=== PATIENT | female | born 1970 | race Caucasian/White ===

== ENCOUNTER 2021-09-16 11:32 | Outpatient (REF) | payer MEDICAID, SELFPAY ==
--- NOTE | ~2021-09-16 | XR_ITS ---
EXAMINATION: XR LUMBOSACRAL SPINE CLINICAL INFORMATION: Low back pain COMPARISON: None TECHNIQUE: Three views of the lumbosacral spine. FINDINGS: There is normal lumbar segmentation with 5 nonrib-bearing lumbar vertebrae of normal height and normal lumbar lordosis. There is no lumbar vertebral lesion, spondylolisthesis, destructive process. There is mild disc narrowing L2-L3 and L3-L4. Multilevel vertebral body spurring is present. No erosive change. There is facet degeneration L4-S1. The SI joints and visualized sacrum are unremarkable. There are surgical clips right upper abdomen likely from prior cholecystectomy. There are degenerative changes lower thoracic spine with disc narrowing and vertebral spurring and bridging osteophytes anteriorly and right laterally. XR/XR lumbar spine 2-3V IMPRESSION: 1. Mild multilevel vertebral spurring with mild disc narrowing L2-L3 and L3-L4 and facet degeneration lower lumbar spine. 2. No lumbar vertebral compression, spondylolisthesis, destructive process.
== END 2021-09-16 11:33 | disposition home or self-care (01) ==
LOC: HO.XRAY 11:32
PROVIDERS: PCP Internal Medicine; Visit Provider Internal Medicine
DX: M54.50 Low back pain, unspecified (principal)
CPT/HCPCS: 72100

== ENCOUNTER 2022-06-08 15:32 | Outpatient (REF) | payer MEDICAID, SELFPAY ==
--- NOTE | ~2022-06-08 | US_ITS ---
EXAMINATION: US SOFT TISSUE NECK CLINICAL INFORMATION: Localized swelling, mass and lump COMPARISON: None TECHNIQUE: Ultrasound of the neck soft tissues was performed with high- frequency frazier-scale imaging and color Doppler in the region of concern, right lateral neck, with the contralateral side for comparison. FINDINGS: No abnormality appreciated by ultrasound. No adenopathy, soft tissue mass or fluid collection. US/US soft tiss head and/or neck IMPRESSION: No abnormality appreciated by ultrasound in the right neck.
== END 2022-06-08 15:33 | disposition home or self-care (01) ==
LOC: HO.US 15:32
PROVIDERS: Visit Provider Internal Medicine
DX: R22.1 Localized swelling, mass and lump, neck (principal)
CPT/HCPCS: 76536

== ENCOUNTER 2023-04-30 08:32 | Outpatient (REF) | payer OTHER, SELFPAY ==
[2023-04-30 11:27] LABS: MANUAL DIFF FLAG NO
[2023-04-30 11:33] LABS: Basophils Absolute Auto 0.1 X10*3/uL (0.0-0.2); Basophils Percent Auto 0.9 % (0-2); Eosinophils Absolute Auto 0.4 X10*3/uL (0.0-0.4); Eosinophils Percent Auto 4.6 % (0-4); Hematocrit 43.4 % (37.0-47.0); Hemoglobin 14.6 g/dl (12.0-16.0); Imm Gran Abs Auto 0.02 X10*3/uL (0.00-0.03); Imm Gran Pct Auto 0.3 % (0.0-0.4); Lymphocytes Absolute Auto 2.5 X10*3/uL (1.2-4.9); Mean Corpuscular HGB Conc 33.6 g/dl (31.0-35.0); Mean Corpuscular Hemoglobin 31.3 pg (27.0-33.0); Mean Corpuscular Volume 93.1 fL (80.0-98.0); Mean Platelet Volume 11.3 fL (9.4-12.3); Monocytes Absolute Auto 0.4 X10*3/uL (0.1-1.2); Monocytes Percent Auto 5.1 % (2-11); Neutrophils Absolute Auto 4.7 x10*3/uL (2.0-8.3); Neutrophils Percent Auto 58.1 % (45-73); Platelet Count 210 X10*3/uL (160-400); Red Blood Count 4.66 X10*6/uL (4.20-5.50); Red Cell Distribution Width 13.1 % (11.0-16.0)
[2023-04-30 11:54] LABS: Estimated Average Glucose 117 mg/dL; Hemoglobin A1c % 5.7 % (<6.0)
[2023-04-30 12:12] LABS: Creatinine Urine 81.33 mg/dL; Microalbum/Creatinine Ratio Ur 9.8 ug/mg cr (<30)
[2023-04-30 12:23] LABS: Alanine Aminotransferase 20 U/L (0-31); Albumin Level 4.1 g/dL (3.5-5.0); Alkaline Phosphatase 102 U/L (39-117); Anion Gap 11 (12-20); Aspartate Amino Transferase 14 U/L (5-31); Bilirubin Total 0.5 mg/dL (0.0-1.0); Blood Urea Nitrogen 14 mg/dL (9-16); Calcium 9.3 mg/dL (8.4-10.2); Carbon Dioxide 26 mmol/L (22-29); Chloride 109 mmol/L (96-108); Cholesterol 223 mg/dL (<200); Estimated Glomerular Filt Rate > 60; Glucose Random 102 mg/dL (60-115); HDL Cholesterol 53 mg/dL (>40); LDL Cholesterol Calculated 149 mg/dL (<100); Potassium 4.3 mmol/L (3.3-5.1); Sodium 142 mmol/L (135-145); TSH reflex Free T4 1.91 uIU/mL (0.32-4.0); Total Protein 6.9 g/dL (6.5-8.0); Triglycerides 108 mg/dL (<150)
[2023-04-30 12:29] LABS: Syphilis Screen Nonreactive (Nonreactive)
[2023-04-30 12:30] LABS: HBc Num1 0.06 S/CO (0.00-0.79); HBsAGNum1 0.41 S/CO (0.00-0.99); HIV AB/AG Nonreactive (Nonreactive); HIV Num 1 0.05 S/CO (0.00-0.99); Hepatitis B Core Antibody Nonreactive (Nonreactive); Hepatitis B Surface Antigen Negative (Negative); ~HepC Num1 0.05 S/CO (0.00-0.79); ~Hepatitis B Surface Antibody NONREACTIVE (Nonreactive); ~Hepatitis C Antibody Nonreactive (Nonreactive)
[2023-04-30 12:40] LABS: Folate 12.9 ng/mL (> or = 4.0); Vitamin B12 466 pg/mL (200-900)
[2023-04-30 13:45] LABS: CT PCR NOT DETECTED (Not Detect.); NG PCR NOT DETECTED (Not Detect.)
[2023-05-05 01:49] LABS: VITAMIN D (1,25 OH) D3 62 pg/mL; Vit D (1,25-Dihydroxy) Total 62 pg/mL (18-72); Vitamin D (1,25 OH) D2 <8 pg/mL
== END 2023-04-30 08:33 | disposition home or self-care (01) ==
LOC: HO.HHCL 08:32
PROVIDERS: Visit Provider Student in an Organized Health Care Education/Training Program
DX: Z00.00 Encounter for general adult medical examination without abnormal findings (principal); Z20.2 Contact with and (suspected) exposure to infections with a predominantly sexual mode of transmission
CPT/HCPCS: 0353U; 80053; 80061; 82043; 82570; 82607; 82652; 82746; 83036; 84443; 85025; 86704; 86706; 86780; 86803; 87340; 87389

== ENCOUNTER 2024-01-25 08:09 | Outpatient (REF) | payer MEDICAID, SELFPAY ==
[2024-01-25 12:42] LABS: Alanine Aminotransferase 22 U/L (0-31); Alkaline Phosphatase 100 U/L (39-117); Anion Gap 9 (12-20); Aspartate Amino Transferase 17 U/L (5-31); Bilirubin Total 0.6 mg/dL (0.0-1.0); Blood Urea Nitrogen 21 mg/dL (9-16); Calcium 9.1 mg/dL (8.4-10.2); Carbon Dioxide 27 mmol/L (22-29); Chloride 110 mmol/L (96-108); Cholesterol 163 mg/dL (<200); Estimated Glomerular Filt Rate > 60; Glucose Random 118 mg/dL (60-115); HDL Cholesterol 54 mg/dL (>40); LDL Cholesterol Calculated 91 mg/dL (<100); Sodium 142 mmol/L (135-145); Total Protein 6.7 g/dL (6.5-8.0); Triglycerides 94 mg/dL (<150)
[2024-01-25 12:44] LABS: Estimated Average Glucose 117 mg/dL; Hemoglobin A1c % 5.7 % (<6.0)
== END 2024-01-25 08:10 | disposition home or self-care (01) ==
LOC: HO.HHCL 08:09
PROVIDERS: Visit Provider Student in an Organized Health Care Education/Training Program
DX: E78.00 Pure hypercholesterolemia, unspecified (principal); Z13.1 Encounter for screening for diabetes mellitus
CPT/HCPCS: 36415; 80053; 80061; 83036

== ENCOUNTER 2024-02-14 13:16 | Outpatient (REF) | payer MEDICAID, SELFPAY ==
--- NOTE | ~2024-02-14 | US_ITS ---
EXAMINATION: US SOFT TISSUE OF THE NECK CLINICAL INFORMATION: Dysphagia for solids and liquids. Rule out masses in neck. Per oscillograph technician patient states does not have a lump, rather states she feels a ball travel down her esophagus and anytime she swallows, also states itching in her ears and down her neck COMPARISON: Ultrasound soft tissue head and/or neck 06/08/2022. TECHNIQUE: Linear transducer grayscale and color Doppler examination of the proximal, mid and distal neck, midline. FINDINGS: Targeted ultrasound images were obtained by the oscillograph technician of the area of concern as indicated by the patient in the midline distal neck and demonstrated no discrete mass or fluid collection. Radiologist was not in attendance. Images were later provided for interpretation. US/US soft tiss head and/or neck IMPRESSION: No discrete mass or fluid collection identified in the area of concern as indicated by the patient in the midline distal neck. Correlation with clinical exam and possible ENT consultation recommended to determine further management as not all abnormalities are detected on ultrasound studies.
== END 2024-02-14 13:17 | disposition home or self-care (01) ==
LOC: HO.US 13:16
PROVIDERS: PCP Student in an Organized Health Care Education/Training Program; Visit Provider Student in an Organized Health Care Education/Training Program
DX: R13.10 Dysphagia, unspecified (principal)
CPT/HCPCS: 76536

== ENCOUNTER → 2024-05-23 13:57 | Outpatient (REF) | payer MEDICAID, SELFPAY ==
--- NOTE | 2024-05-23 14:01 | CA_ITS ---
Transthoracic Echocardiogram Patient (Last, First, Middle): Cheyenne Kinney, Gender: Female Date of : 1970 Age: 53 Procedure Date: 05/23/2024 Procedure Type: Transthoracic Echocardiogram Location: OP Height: 160.02 cm Weight: 77.11 kg BSA: 1.80 m2 Heart Rate: bpm BP: 130 / 80 mmHg Assistant Community Director: Referring MD: Cheyenne Wray MD Symptoms: DORANTES R06.09 Study Quality: Adequate w contrast ECG Rhythm: Sinus Conclusions: - The left ventricular systolic function is hyperdynamic. The visually estimated ejection fraction is >70%. - No obvious valvular pathology seen on this study. Findings Procedure Information Contrast agent, definity, is being given per protocol without apparent complications. Left Ventricle Normal left ventricular cavity size. There is normal left ventricular wall thickness. The left ventricular systolic function is hyperdynamic. The visually estimated ejection fraction is >70%. There is no evidence of regional wall motion abnormalities. Diastolic function is normal for age. Right Ventricle Normal right ventricular cavity size and systolic function. Atria Both atria are normal in size. Aortic Valve There is a normal trileaflet aortic valve. There is no aortic valve stenosis. There is no aortic valve regurgitation. Mitral Valve The mitral valve appears normal. There is no mitral valve regurgitation. There is no mitral valve stenosis. Pulmonic Valve The pulmonic valve is likely normal. Tricuspid Valve There is no tricuspid valve regurgitation. Tricuspid regurgitation envelope is inadequate for calculation of right ventricular systolic pressure. Great Vessels The asc aorta is normal in size. Venous The inferior vena cava is normal in size and collapses greater than 50% with inspiration. Pericardium/Pleural There is no evidence of pericardial effusion. Prior Study Comparison No prior study available for comparison. Recommendations, Care & Conclusions No obvious valvular pathology seen on this study. Measurements 2D Linear Measurements IVSd: 0.95 0.6-0.9/0.6-1.0 cm LVIDd: 4.85 3.9-5.3/4.2-5.9 cm LVIDd Index: 2.69 2.4-3.2/2.2-3.1 cm/m2 LVIDs: 2.34 2.0-3.6 cm LVPWd: 1.05 0.7-1.1 cm Ao Root: 2.80 2.1-3.5 cm LA Diam: 3.90 2.7-3.8/3.0-4.0 cm LAIDs Index: 2.17 1.5-2.3 cm/m2 LV Mass: 215.48 67-162/88-224 g LV Mass Index: 119.71 43-95/49-115 g/m2 LVOT Diam: 2.00 3.0+(-)1.3 cm 2D Systolic Function EF 4C: 66.00 >55% EF 2C: 77.30 >55% EF BiP: 72.10 >55% Mitral Valve MV Pk E: 0.64 MV PK A: 0.67 MV Decel Time: 222.00 E/A: 0.90 E'Lateral: 8.27 E'Medial: 8.05 E/E' Med: 7.90 E/E' Lat: 7.70 PHT: 65.00 MVA PHT: 3.38 Decel [place]: 2.87 Aortic Valve AoV Pk Ovi: 1.92 AoV Mn Ovi: 1.28 AoV VTI: 0.38 AoV Pk Grad: 15.00 Aov Mn Grad: 8.00 MIKAELA Cont.VTI: 2.19 LVOT LVOT Pk Ovi: 1.31 LVOT Mn Ovi: 0.76 LVOT VTI: 0.27 LVOT Pk Grad: 7.00 LVOT Mn Grad: 3.00 LVOT Diam: 2.00 LVOT Area: 3.14 Diastolic Function MV Pk E: 0.64 MV Pk A: 0.67 E/A: 0.90 E'Medial: 8.05 E/E' Med: 7.90 E' Laterial: 8.27 E/E' Lat: 7.70 Right Ventricle TAPSE (mm): 35.20 TVS' Ovi: 17.50 Tricuspid Valve TR Pk Ovi: 1.93 TR Pk Grad: 15.00 Great Vessels Aorta Ao Root-2D: 2.80 2.0-3.7 cm Ao Asc: 3.10 2.1-3.4 cm Pulmonary Valve PV Pk Ovi: 1.34 Peak PV Grad: 7.00 Updated in Other Vendor System with Status of Final Elder Fried MD electronically signed on 05/23/2024 4:32:58 PM with status of Final
== END ==
LOC: HO.CARD 13:57
PROVIDERS: PCP Student in an Organized Health Care Education/Training Program; Visit Provider Student in an Organized Health Care Education/Training Program
DX: R06.09 Other forms of dyspnea (principal)
CPT/HCPCS: 93306; Q9957

== ENCOUNTER → 2024-05-23 14:01 | Outpatient (BNV) | payer MEDICAID, SELFPAY | PROVIDERS: PCP Student in an Organized Health Care Education/Training Program; Visit Provider Internal Medicine | DX: R06.09 Other forms of dyspnea (principal) | CPT/HCPCS: 93306 ==

== ENCOUNTER 2024-07-17 08:26 | Outpatient (REF) | payer MEDICAID, SELFPAY ==
[2024-07-17 11:48] LABS: Mean Corpuscular HGB Conc 33.3 g/dl (31.0-35.0); Mean Corpuscular Hemoglobin 30.8 pg (27.0-33.0); Mean Corpuscular Volume 92.3 fL (80.0-98.0); Mean Platelet Volume 11.1 fL (9.4-12.3); Platelet Count 205 X10*3/uL (160-400); Red Blood Count 4.55 X10*6/uL (4.20-5.50); Red Cell Distribution Width 13.2 % (11.0-16.0); White Blood Count 7.2 X10*3/uL (4.8-10.8)
[2024-07-17 12:00] LABS: Estimated Average Glucose 120 mg/dL; Hemoglobin A1C 138.2791 umol/L; Hemoglobin A1c % 5.8 % (<6.0); Total Hemoglobin (HGBA1C) 3493.3543 umol/L
[2024-07-17 12:29] LABS: Syphilis Screen Nonreactive (Nonreactive)
[2024-07-17 12:35] LABS: HBc Num1 0.04 S/CO (0.00-0.79); HBsAGNum1 0.42 S/CO (0.00-0.99); HIV AB/AG Nonreactive (Nonreactive); HIV Num 1 0.05 S/CO (0.00-0.99); Hepatitis B Core Antibody Nonreactive (Nonreactive); Hepatitis B Surface Antigen Negative (Negative); ~HepC Num1 0.09 S/CO (0.00-0.79); ~Hepatitis B Surface Antibody NONREACTIVE (Nonreactive); ~Hepatitis C Antibody Nonreactive (Nonreactive)
[2024-07-17 12:38] LABS: Alanine Aminotransferase 22 U/L (0-31); Albumin Level 3.9 g/dL (3.5-5.0); Alkaline Phosphatase 97 U/L (39-117); Anion Gap 8 (12-20); Aspartate Amino Transferase 19 U/L (5-31); Bilirubin Total 0.7 mg/dL (0.0-1.0); Blood Urea Nitrogen 18 mg/dL (9-16); Calcium 8.7 mg/dL (8.4-10.2); Carbon Dioxide 28 mmol/L (22-29); Chloride 110 mmol/L (96-108); Cholesterol 187 mg/dL (<200); Estimated Glomerular Filt Rate > 60; Glucose Random 109 mg/dL (60-115); HDL Cholesterol 55 mg/dL (>40); LDL Cholesterol Calculated 109 mg/dL (<100); Sodium 142 mmol/L (135-145); Total Protein 6.6 g/dL (6.5-8.0); Triglycerides 119 mg/dL (<150)
[2024-07-17 12:40] LABS: Folate 7.3 ng/mL (> or = 4.0); TSH reflex Free T4 1.87 uIU/mL (0.32-4.0); Vitamin B12 490 pg/mL (200-900); Vitamin D 25-OH Total 35.2 ng/mL (>30)
[2024-07-17 13:33] LABS: CT PCR NOT DETECTED (Not Detect.); NG PCR NOT DETECTED (Not Detect.)
[2024-07-17 14:35] LABS: Creatinine Urine 145.37 mg/dL
== END 2024-07-17 08:27 | disposition home or self-care (01) ==
LOC: HO.HHCL 08:26
PROVIDERS: Visit Provider Student in an Organized Health Care Education/Training Program
DX: Z00.00 Encounter for general adult medical examination without abnormal findings (principal)
CPT/HCPCS: 80053; 80061; 82043; 82306; 82570; 82607; 82746; 83036; 84443; 85027; 86704; 86706; 86780; 86803; 87340; 87389; 87491; 87591

== ENCOUNTER 2024-07-17 08:58 | Outpatient (REF) | payer MEDICAID, SELFPAY | END 2024-07-17 08:59 | disposition home or self-care (01) | LOC: HO.HHCL 08:58 | PROVIDERS: Visit Provider Student in an Organized Health Care Education/Training Program | DX: Z13.89 Encounter for screening for other disorder (principal) ==

== ENCOUNTER 2024-08-11 09:22 | Outpatient (AMB) | payer MEDICAID, SELFPAY ==
--- NOTE | 2024-08-11 07:41 | A.OFFVIS_ITS ---
Intake Visit Reasons: LDCT HPI HPI LDCT: Details: Initial visit for this 53yo smoker with a 30+PYH. Patient started smoking at age 10 for 43 years at 1/2-1ppd. . Denies marijuana use. Denies second hand smoke exposure. Denies exposure to chemicals or substances like asbestos. . Denies known family history of lung cancer. Denies personal history of cancers. Denies chest CT in last year. . Denies recent travel outside the [place]. Denies recent respiratory illness or recent hospitalization for respiratory issues. Denies testing positive for COVID. Admits receiving COVID Vaccine. . Denies fever, chills, new/worsening cough, hemoptysis, hoarseness or dysphagia. Denies significant chest pain, significant dyspnea or unintentional weight loss. Patient Lung Cancer Screening Questionnaire reviewed with patient by provider. . Shared Decision Making Completed. Patient meets criteria. Discussed in detail with patient, the risk vs benefit of LDCT screening. Patient consents to proceed with scan. Discussed smoking cessation. [facility] Medical History (Updated 01/07/24 @ 11:29 by Lori Guthrie PA-C) Polymyalgia rheumatica Hypertension Hyperlipidemia Anxiety and depression Urinary incontinence Nicotine dependence, cigarettes, uncomplicated Surgical History (Updated 01/07/24 @ 11:30 by Lori Guthrie PA-C) History of cholecystectomy History of abdominal hysterectomy History of Social History (Updated 08/11/24 @ 09:41 by Lori Guthrie PA-C) Patient Tobacco Use Status: Current everyday Tobacco user Cigarettes Per Day: 10 Years Smoked: (onset 10yo, 1/2-1ppd x 43yrs, 30+PYH) Assessment & Plan Assessment & Plan (1) Nicotine dependence, cigarettes, uncomplicated: Comment: (onset 10yo, 1/2-1ppd x 43yrs, 30+PYH) Code(s): F17.210 - Nicotine dependence, cigarettes, uncomplicated Category: Medical Plan: - SDM visit completed today in office. - Patient meets criteria for LDCT for lung cancer screening purposes and is asymptomatic. - Smoking cessation counseling offered. Patients can always call [phone]. - Will arrange for a LDCT scan of the chest for screening purposes at [facility]. - Risks, benefits, and alternatives were discussed in detail and the patient agrees to proceed. - Risks discussed include but are not limited to: radiation exposure, anxiety during testing and while awaiting results, false negatives, false positives and possibility of additional intervention such as further imaging or surgical procedures for benign disease. - Benefits are obviously detection of lung cancer at an early stage which can lead to improved outcomes. - Discussed the importance of screening program compliance with adherence to yearly LDCT scan as scheduled - or sooner interval scans for personalized screening regimen. - Discussed follow up plan. Our office will send a letter discussing results and if needed set up phone call and office visit based on CT findings. - Patient educated on results categorization and the management decisions for suspicious findings potentially found on the screening LDCT scan. Any patient with a Lung RADS score of 3 or 4 will be reviewed by a multidisciplinary team at [facility] to form a plan of action in regards to scan findings. - If further work up is warranted for a suspicious lung finding this will be followed by the Lung Cancer Screening program in conjunction with the Thoracic Surgery Department at [facility]. - A copy of the office note and LDCT will be sent to the patient's PCP - as well as documentation on any associated further plans of care. - Incidental findings on LDCT are the PCP's responsibility. These findings are indicated with an S finding on the LDCT Assessment. A note discussing the findings will be sent to the PCP who is then responsible for further management. - All questions answered.? Coding Level of Care Code Lung Cancer Screening G0296 Diagnoses Nicotine dependence, cigarettes, uncomplicated F17.210
== END 2024-08-11 09:45 | disposition home or self-care (01) ==
PROVIDERS: PCP Student in an Organized Health Care Education/Training Program; Visit Provider Physician Assistant Medical
DX: F17.210 Nicotine dependence, cigarettes, uncomplicated (principal)
CPT/HCPCS: G0296

== ENCOUNTER 2024-08-11 09:41 | Outpatient (REF) | payer MEDICAID, SELFPAY ==
--- NOTE | ~2024-08-11 | CT_ITS ---
EXAMINATION: CT LUNG SCREENING HISTORY: Smoking history TECHNIQUE: Low dose axial images were obtained from the sternal notch to upper abdomen without IV contrast per standard departmental protocol. Sagittal and coronal reformatted images were also obtained and reviewed. One or more of the following techniques was used for dose reduction: Automated exposure control, adjustment of the mA and/or kV according to patient size, use of iterative reconstruction technique. DLP: 56 mGy-cm COMPARISON: There are no prior studies for comparison. FINDINGS: Lung nodules: There is a 3 mm calcification in the right lower lobe (image 28). No additional pulmonary nodules are identified. Emphysema: none Coronary Calcification: mild Aortic Arch Calcification: mild Potentially Significant Incidentals : none Additional Chest Findings: There is no pleural or pericardial effusion. No mediastinal or axillary lymphadenopathy is identified. Visualized upper abdomen: The visualized portions of the liver, spleen, and adrenals have an unremarkable unenhanced appearance. CT/CT lung screening IMPRESSION: No suspicious pulmonary nodules are identified. LUNG-RADS ASSESSMENT: Lung-RAD 2: Benign MANAGEMENT: Continue annual screening with LDCT in 12 months Category S: N/A Electronically signed by: Mauricio Garibay MD 08/14/2024 07:28 AM [facility]
== END 2024-08-11 09:42 | disposition home or self-care (01) ==
LOC: HO.CT 09:41
PROVIDERS: PCP Student in an Organized Health Care Education/Training Program; Visit Provider Physician Assistant Medical
DX: Z12.2 Encounter for screening for malignant neoplasm of respiratory organs (principal); F17.210 Nicotine dependence, cigarettes, uncomplicated
CPT/HCPCS: 71271; G0296

== ENCOUNTER → 2024-08-11 09:45 | Outpatient (BNV) | payer MEDICAID, SELFPAY | PROVIDERS: PCP Student in an Organized Health Care Education/Training Program; Visit Provider Radiology Diagnostic Radiology | DX: J84.10 Pulmonary fibrosis, unspecified (principal) | CPT/HCPCS: 71271 ==

== ENCOUNTER 2024-09-07 13:43 | Outpatient (AMB) | payer MEDICAID, SELFPAY ==
--- NOTE | 2024-09-07 13:57 | A.OFFVIS_ITS ---
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 She is a 53-year-old female who is a longstanding smoker, with hypertension hyperlipidemia. Over the last few months she has been noticing increasing symptoms exertional shortness of breath especially when she climbs few flights of stair quickly. She was no associated chest discomfort with her. However she says when she is stressed she gets retrosternal chest pressure/tightness but usually at that time a blood pressure is also very elevated. She was overall otherwise a blood pressure is well controlled. She smokes about 10-12 cigarettes a day on a regular basis and when she was stress she smokes more cigarettes. She has not had any pulmonary workup. She had LV ejection fraction greater than 70% without any major valvular abnormalities or significant LVH. She was referred here for further evaluation. [facility] Medical History Polymyalgia rheumatica Hypertension Hyperlipidemia Anxiety and depression Urinary incontinence Nicotine dependence, cigarettes, uncomplicated Surgical History History of cholecystectomy History of abdominal hysterectomy History of Family History Father No problems noted. Mother No problems noted. Social History Patient Tobacco Use Status: Current everyday Tobacco user Cigarettes Per Day: 10 Years Smoked: (onset 10yo, 1/2-1ppd x 43yrs, 30+PYH) Review of Systems Const Denies chills, Denies daytime sleepiness, Denies fatigue, Denies fever(s), Denies frequent falls, Denies poor appetite, Denies snoring, Denies stops breathing during sleep, Denies weakness, Denies weight gain and Denies weight loss Eyes Denies loss of vision ENT Denies dizziness and Denies hearing loss Card Denies chest pain, Denies claudication, Denies leg edema, Denies lightheadedness, Denies palpitations, Denies dyspnea, Denies dyspnea on exertion and Denies orthopnea Resp Denies cough, Denies excessive phlegm production, Denies dyspnea, Denies dyspnea on exertion, Denies snoring and Denies wheezing GI Denies abdominal pain, Denies hematochezia, Denies change in bowel habits, Denies nausea and Denies vomiting Denies urinary frequency and Denies dysuria Musc Denies arthralgias, Denies muscle weakness, Denies numbness and Denies other (frequent falls) Skin/Breast Denies nail changes and Denies rash Neuro Denies Abnormal speech present, Denies dizziness, Denies frequent falls, Denies loss of vision, Denies memory loss, Denies numbness and Denies weakness Psych Denies depression and Denies memory loss Endo Denies fatigue and Denies palpitations Thomas/Lymph Reports easy bruising and Reports other (anemia) Aller/Immun Denies wheezing Physical Exam Vital Signs: Last Vital Signs Pulse 63 09/07/24 14:01 BP 130/76 09/07/24 14:01 BMI result Body Mass Index 29.0 Const General: cooperative, comfortable, no acute distress, alert, awake and Physicall y active Nutritional Appearance: overweight Orientation/consciousness: patient oriented x3 Limitations: no limitations HEENT Head: Yes normocephalic and Yes atraumatic Neck Neck: Yes trachea midline, Yes supple and Yes no JVD Resp Effort & Inspection: normal respiratory effort Auscultation: clear to auscultation bilaterally Cardio Jugular venous distension: no JVD Rate: regular rate Rhythm: regular rhythm Heart sounds: S1 normal heart sound present, S2 normal heart sound present, no click, no gallops, no murmurs and no rubs GI Auscultation: normal bowel sounds Skin General skin exam: no rashes or lesions noted Neuro General: patient oriented x3 and no focal motor deficits Speech: No Abnormal speech present Extrem General: Yes no clubbing, cyanosis or edema Psych Appearance: grossly normal Office Procedures EKG Details: EKG shows normal sinus rhythm with normal EKG [id number], Complete Assessment & Plan Assessment & Plan (1) SOB (shortness of breath) on exertion: Code(s): R06.02 - Shortness of breath Category: Medical Plan: Patient was exertional shortness of breath in middle-aged woman with multiple risk factors including hypertension, hyperlipidemia as well as chronic smoking. She also gets stress-induced chest discomfort however this could be related to significantly elevated blood pressure during that time. We discussed about stress mitigation strategies. We also discussed about smoking cessation. This was all discussed with help of salon/spa manager. Her baseline EKGs normal at this point time I would suggest her to undergo treadmill stress test to evaluate for myocardial ischemia. If this is negative at good workload, advised to follow-up with a coronary calcium score to assess for presence of atherosclerosis. This was discussed with her. She is agreeable. Meanwhile I have advised her to continue current therapy. Importance of good blood pressure control was discussed. Advised to monitor blood pressure at home maintain a log. Low-salt diet was discussed. LDL goal will be dependent on her stress test and coronary calcium score results. Will follow up in the clinic if need be. Thank you for allowing me to partake in his care Orders: Orders CT Coronary Calcium Score 4 Weeks R06.02 - Shortness of breath CA stress test Today R06.02 - Shortness of breath Coding Level of Care Code New Pt Level 4 (75536) Complex EM visit Add On G2211 Diagnoses SOB (shortness of breath) on exertion R06.02 CPT Codes EKG - CPT: 88613-[id number], Complete ([id number])
[2024-09-07 14:01] VITALS: BP 130/76; PULSE 63; BMI 29.0
--- OUTSIDE RECORDS SUMMARY | 2024-09-07 17:34 | XMS_ITS | Encounter Summary ---
Author Organization [employer] Address [address] [place] [address] Care Team Providers Care Sales Program Manager Name Role Phone Cheyenne Frausto MD Primary Care Pro vider Encounter Details Date Type Department Care Team ([facility] st Contact Info) Description 07/27/2024 Orders Only [facility] [address] [place], [place] [id number] Provider, MD Ted Social History Tobacco Use Types Packs/Day Years Used Date Smoking Tobacco: Every Day Cigarettes 0.5 44.1 Started: 1980 Passive Smoke Exposure: Current Comments:Started at 10 years of age ,stopped while but then again smoking --- 1/2 PQT a day smoking for 42 years , PQT calc 21 a year Alcohol Use Standard Drinks/Week Comments Yes 12 (1 standard drink = 0.6 oz pu re alcohol) Depression Answer Date Recorded Patient Health Questionnaire-9 Score 1 05/28/2023 Patient Health Questionnaire-9 Score 1 05/28/2023 Last PHQ-9: Questionnaire Data Not on file 1 Housing Stability Answer Date Recorded What is your housing situation today? Not on pelon e 04/25/[address] you li ve. Do you have problems with any of the following? None of the above 04/25/2024 Food Insecurity Answer Date Recorded Within the past 12 months, y ou worried that your food would run out before you got money to buy more: Never True 04/25/2024 Within the past 12 months,th e food you bought just didn't last and you didn't have enough money to get more: Never True Transportation Answer Date Recorded In the past 12 months, has l ack of transportation kept you from medical appts, meetings, work or from getting things needed for daily living? No 04/25/2024 Utilities Answer Date Recorded In the past 12 months, has t he electric, gas, oil or water company threatened to shut off services in your home? No 04/25/2024 Depression Answer Date Recorded Patient Health Questionnaire-2 Score 0 05/28/2023 Internet Access Answer Date Recorded Internet Access Q1 Yes 04/25/2024 Internet Access Q2 Not on file 04/25/2024 Comments Unknown Sex and Gender Information Value Date Recorded Sex Assigned at Female 06/08/2022 10:20 AM EDT Legal Sex Female 10:20 AM EDT Gender Identity Female 06/08/2022 10:20 AM EDT Sexual Orientation Straight 04/28/2023 11 :17 AM EDT documented as of this encounter Plan of Treatment Upcoming Encounters Date Type Department Care Team (Late st Contact Info) Description 10/03/2024 2:45 PM EST Office Visit [facility] [address] [place] [address] Cheyenne Donis MD [address] [place] [address] documented as of this encounter Goals Goal Patient Goal Type Associated Problems Recent Progress Patient-Stated? Author Smoking cessation General Tobacco user On track(06/28/20 23 6:05 PM EST) No Lara Morgan, PharmD documented as of this encounter Procedures Procedure Name Priority Date/Time Associated Diagnosis Comments LDCT LUNG SCREENING Routine 08/11/2024 1 0:12 AM EST HM COLONOSCOPY Routine 03/08/2024 12:22 PM EDT documented in this encounter Results * CT Lung Screening Low dose (08/11/2024 10:12 AM EST) Anatomical Region Laterality Modality Lung Computed Tomogra phy 08/11/2024 10:1 2 AM EST Narrative 08/14/2024 7:31 AM EST ? [facility] ?[address] ?[place] [address] ? CT Scan Report ? Signed ? Patient: Kinney,Cheyenne ?MR#: [id number] ?? 0 ? : 1970 ?Acct:[id number] ? Age/Sex: 53 / F ?ADM Date: 08/11/24 ? Loc: HO.CT ? Attending Dr: Lori Guthrie PA-C ? Ordering Physician: Lori Guthrie PA-C ?? Date of Service: 08/11/24 ?? Procedure(s): CT lung screening ?? Accession Number(s): [id number] ? cc: Lori Guthrie PA-C; Cheyenne Frausto MD ? Report Number: ?? [id number]: Total DLP = ?? 56.00 mGy-cm ?? EXAMINATION: ??CT LUNG SCREENING ? HISTORY: Smoking history ? TECHNIQUE: Low dose axial images were obtained from the sternal notch ?? to upper abdomen without IV contrast per standard departmental ?? protocol. ??Sagittal and coronal reformatted images were also obtained ?? and reviewed. ??One or more of the following techniques was used for ?? dose reduction: Automated exposure control, adjustment of the mA and/or ?? kV according to patient size, use of iterative reconstruction technique. ? DLP: 56 mGy-cm ? COMPARISON: ??There are no prior studies for comparison. ? FINDINGS: ? Lung nodules: There is a 3 mm calcification in the right lower lobe ?? (image 28). No additional pulmonary nodules are identified. ? Emphysema: none ? Coronary Calcification: ??mild ? Aortic Arch Calcification: ??mild ? Potentially Significant Incidentals : none ? Additional Chest Findings: There is no pleural or pericardial effusion. ?? No mediastinal or axillary lymphadenopathy is identified. ? Visualized upper abdomen: The visualized portions of the liver, spleen, ?? and adrenals have an unremarkable unenhanced appearance. ? CT/CT lung screening ?? IMPRESSION: ?? No suspicious pulmonary nodules are identified. ? LUNG-RADS ASSESSMENT: ?? Lung-RAD 2: Benign ? MANAGEMENT: ?? Continue annual screening with LDCT in 12 months ? Category S: N/A ? Electronically signed by: ??Mauricio Garibay MD ??08/14/2024 07:28 AM EST ?? RP ? Dictated By: ?Mauricio Garibay MD ? Signed By: ?<Electronically signed by Mauricio Garibay MD in OV> ?08/14/24727 ? DD/ 1012 ? TD/TT: 08/11/24 1103 ? Geospatial Systems Integrator: ? Procedure Note Donclintonter, Image - 08/14/[address] [address] [address] Scan Report Signed Patient: Asuncion Kinney#: [id number] 0 : 1970Acct:[id number] Age/Sex: 53 / FADM Date: 08/11/24 Loc: HO.CT Attending Dr: Lori Guthrie PA-C Ordering Physician: Lori Guthrie PA-C Date of Service: 08/11/24 Procedure(s): CT lung screening Accession Number(s): [id number] cc: Lori Guthrie PA-C; Cheyenne Frausto MD Report Number: [id number]: Total DLP = 56.00 mGy-cm EXAMINATION: CT LUNG SCREENING HISTORY: Smoking history TECHNIQUE: Low dose axial images were obtained from the sternal notch to upper abdomen without IV contrast per standard departmental protocol. Sagittal and coronal reformatted images were also obtained and reviewed. One or more of the following techniques was used for dose reduction: Automated exposure control, adjustment of the mA and/or kV according to patient size, use of iterative reconstruction technique. DLP: 56 mGy-cm COMPARISON: There are no prior studies for comparison. FINDINGS: Lung nodules: There is a 3 mm calcification in the right lower lobe (image 28). No additional pulmonary nodules are identified. Emphysema: none Coronary Calcification: mild Aortic Arch Calcification: mild Potentially Significant Incidentals : none Additional Chest Findings: There is no pleural or pericardial effusion. No mediastinal or axillary lymphadenopathy is identified. Visualized upper abdomen: The visualized portions of the liver, spleen, and adrenals have an unremarkable unenhanced appearance. CT/CT lung screening IMPRESSION: No suspicious pulmonary nodules are identified. LUNG-RADS ASSESSMENT: Lung-RAD 2: Benign MANAGEMENT: Continue annual screening with LDCT in 12 months Category S: N/A Electronically signed by: Mauricio Garibay MD 08/14/2024 07:28 AM EST RP Dictated By: Mauricio Garibay MD Signed By: <Electronically signed by Mauricio Garibay MD in OV> 08/14/24 0728 DD/ 1012 TD/TT: 08/11/24 1103 Geospatial Systems Integrator: [facility] External Provider IMG CT PROCEDURES Edited Result - Final * Hm Colonoscopy (03/08/2024 12:22 PM EDT) Historical Provider HEALTH MAINTENANCE Final Result documented in this encounter Visit Diagnoses Not on filedocumented in this encounter Additional Health Concerns Assessment Noted Time PHQ-9 Depression Total Score: 1 05/28/20 23 9:15 AM EDT documented as of this encounter Care Teams Sales Program Manager Relationship Specialty Start Date End Date Cheyenne Frausto MD [address] [place] [id number] PCP - General Internal Medicine 03/30/23 documented as of this encounter
--- OUTSIDE RECORDS SUMMARY | 2024-09-07 17:34 | XMS_ITS | Clinical Summary ---
Author Organization [facility] Address [address] [place] [address] Care Team Providers Care Dry House Tender Name Role Phone Hansa Sotomayor PA-C Primary Care Provider [phone] Source Comments PLEASE NOTE, if this patient is a minor, it may be UNLAWFUL to discuss sensitive information that is contained in these records (such as FAMILY PLANNING, MENTAL HEALTH or SUBSTANCE ABUSE) with the minor patient's parent or other person without the patient's specific authorization.[facility] Allergies Active Allergy Reactions Criticality Noted Date Comments Penicillins 04/16/2016 Medications gabapentin (NEURONTIN) 300 mg capsuleIndications :Fibromyalgia Take 1 Cap by mouth 3 (three) times daily. 6 Active clonazePAM (KLONOPIN) 0.5 mg tabletIndications: Anxiety and depression Take 1 Tab by mouth 2 (two) times daily as needed for anxiety. 6 Active vitamin D3 1,000 unit capsuleIndications :Vitamin D insufficiency Take 1 Cap by mouth once daily. 90 Cap 3 6 Active nicotine polacrilex (NICORETTE) 4 mg gumIndications:Tob acco abuse disorder Take 1 Each by mouth as needed for smoking cessation. Do not eat or drink for 15 minutes before or while chewing gum. 110 Each 0 6 Active VITAMIN B-1 50 mg tablet TAKE 1 TABLET BY MOUTH DAILY 30 Tab 0 7 Active ibuprofen (ADVIL,MOTRIN) 600 mg tabletIndications: Left knee pain, unspecified chronicity Take 1 Tab by mouth 4 (four) times daily as needed for pain 60 Tab 1 7 Active sertraline (ZOLOFT) 50 mg tablet Take 1 Tab by mouth once daily 30 Tab 5 7 Active Active Problems Problem Noted Date Diagnosed Date Vitamin D insufficiency 04/20/2016 Anxiety and depression 04/16/2016 Fibromyalgia 04/16/2016 Tobacco abuse disorder 04/16/2016 Immunizations Name Administration Dates Next Due Flu, Preservative Free 04/16/2016 Social History Tobacco Use Types Packs/Day Years Used Date Smoking Tobacco: Every Day Cigarettes Tobacco Cessation:Ready to Q uit: No; Counseling Given: Yes Alcohol Use Standard Drinks/Week Comments Yes 0 (1 standard drink = 0.6 oz pur e alcohol) Social Connections Answer Date Recorded Social Connections and Isolation 0 04/02/2019 Financial Resource Strain Answer Date R ecorded Financial Resource Strain 0 2018 Stress Answer Date Recorded Stress 0 04/02/2019 Physical Activity Answer Date Recorded Physical Activity 0 04/02/2019 Food Insecurity Answer Date Recorded Food 0 04/02/2019 Transportation Needs Answer Date Record ed Transportation 0 04/02/2019 Housing Stability Answer Date Recorded Housing 0 04/02/2019 Safety and Environment Answer Date Royal rded Safety 0 04/02/2019 Utilities Answer Date Recorded Utilities 0 04/02/2019 Employment Answer Date Recorded Employment 0 04/02/2019 Comments No Sex and Gender Information Value Date Recorded Sex Assigned at Not on file Legal Sex Female 8:41 AM PDT Gender Identity Not on file Sexual Orientation Not on file 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 Not on file Not on file Last Filed Vital Signs Vital Sign Reading Time Taken Comments Blood Pressure 147/76 11/25/2016 11:47 AM EDT Pulse 66 11/25/2016 11:47 AM EDT Temperature 37.2 ??C (98.9 ??F) 11/25/2016 11:47 AM E DT Respiratory Rate 16 11/25/2016 11:47 AM EDT Oxygen Saturation - - Inhaled Oxygen Concentration - - Weight 82.1 kg (181 lb) 04/16/2016 3:20 PM EDT Height 162.6 cm (5' 4 ) 04/16/2016 3:20 PM EDT Body Mass Index 31.07 04/16/2016 3:20 PM EDT Plan of Treatment Not on file Insurance [place] MEDICAID Care Teams Dry House Tender Relationship Specialty Start Date End Date Hansa Sotomayor PA-C [address] [place] [phone] PCP - General 10/04/18
--- OUTSIDE RECORDS SUMMARY | 2024-09-07 17:34 | XMS_ITS | Clinical Summary ---
Author Organization [facility] it Address [id number] [place] [phone] Care Team Providers Care Petroleum Inspector Supervisor Name Role Phone Patsy Waters MD Primary Care Provider Surgical History Surgery Date Site/Laterality Comments OTHER SURGICAL HISTORY PROCEDURE: CLASS HYSTERECTOMY PROCEDURE: HISTORICAL HYSTERECTOMY Medical History Medical History Date Comments Anxiety and depression 05/02/2018 DX:Anxiet y and depression Tobacco abuse 05/02/2018 DX:Tobacco abuse Overweight (BMI 25.0-29.9) 05/02/2018 DX:Ov erweight (BMI 25.0-29.9) Hypertension 05/02/2018 DX:Hypertension Microalbuminuria 05/04/2018 DX:Microalbumin uria Hypertensive nephropathy 05/04/2018 DX:Hype rtensive nephropathy Hypertriglyceridemia 05/03/2018 DX:Hypertri glyceridemia Family History Medical History Relation Name Comments Diabetes Father HLD Diabetes Mother HLD Relation Name Status Comments Father Mother Social History Tobacco Use Types Packs/Day Years Used Date Smoking Tobacco: Every Day Cigarettes Smokeless Tobacco: Never Alcohol Use Standard Drinks/Week Comments Yes 2 (1 standard drink = 0.6 oz pur e alcohol) Sex and Gender Information Value Date Recorded Sex Assigned at Not on file Gender Identity Not on file Sexual Orientation Not on file Obstetrics History Plan of Treatment Upcoming Encounters Date Type Department Care Team (Late Contact Info) Description 12/20/2024 1:40 PM EDT Appointment Radiology Department [address] [phone] Health Maintenance Due Date Last Done Comments Pneumococcal Vaccine: Pediatrics (0 to 5 Years) and At-Risk Patients (6 to 64 Years) (1 of 2 - PCV) 1974 DTaP,Tdap,and Td Vaccines (1 - Tdap) 1987 Hepatitis B Vaccines (1 of 3 - 19+ 3-dose series) 1987 Cervical Cancer Screening: Pap Smear 1989 Zoster Vaccines (1 of 2) 2018 Cholesterol Screening (Lipid Panel) 07/12/2022 Colorectal Cancer Screening: Colonoscopy 07/12/2022 Depression Screening 07/12/2022 HIV Screening 07/12/2022 Hepatitis C Screening 07/12/2022 Social Influencers of Health Screening 07/12/2022 Hypertension/CHF/CAD Annual BMP Blood Test 07/21/2022 COVID-19 Vaccine ( season) 2024 Influenza Vaccine (#1) 2024 2019, 2017 Breast Cancer Screening 12/14/2025 12/15/19, 12/15/2023, 10/26/2021, Additional history exists HIB Vaccines Aged Out No longer eligi ble based on patient's age to complete this topic HPV Vaccines Aged Out No longer eligi ble based on patient's age to complete this topic Hepatitis A Vaccines Aged Out No long er eligible based on patient's age to complete this topic IPV Vaccines Aged Out No longer eligi ble based on patient's age to complete this topic MMR Vaccines Aged Out No longer eligi ble based on patient's age to complete this topic Meningococcal ACWY Vaccine Aged Out N o longer eligible based on patient's age to complete this topic RSV Immunization Patients Under 20 months Aged Out No longer eligible based on patient's age to complete this topic Varicella Vaccines Aged Out No longer eligible based on patient's age to complete this topic Procedures Procedure Name Priority Date/Time Associated Diagnosis Comments SCREENING MAMMOGRAPHY BI 2-VIEW BREAST INC CAD Routine 12/15/2023 10:03 AM EDT Encounter for other screening for malignant neoplasm of breast from Last 3 Months or Most Recently Relevant to Health Maintenance Results * SCREENING MAMMOGRAPHY BI 2-VIEW BREAST INC CAD (12/15/2023 10:03 AM EDT) Anatomical Region Laterality Modality Radiographic Catherine ging 12/13/2023 4:02 PM EDT Narrative 12/15/2023 10:44 AM EDT This is a summary report. The complete report is available in the patient's medical record. If you cannot access the medical record, please contact the sending organization for a detailed fax or copy. Full field digital screening tomosynthesis mammography, reviewed with CAD and compared to previous. The breasts are composed of fatty and fibroglandular tissue. ??No suspicious mass, architectural distortion or suspicious calcifications are identified. IMPRESSION: : No mammographic evidence of malignancy. BIRADS 1-Negative; N. 5 year breast cancer risk assessment 1.2 % Lifetime breast cancer risk assessment 8.6 % Breast cancer risk category Low (<15%) Procedure Note Kyle Vaughn MD - 03/27/2024 This is a summary report. The complete report is available in thepatient's medical record. If you cannot access the medical record, pleasecontact the sending organization for a detailed fax or copy. Full field digital screening tomosynthesis mammography, reviewed with CADand compared to previous. The breasts are composed of fatty andfibroglandular tissue. No suspicious mass, architectural distortion orsuspicious calcifications are identified. IMPRESSION: : No mammographic evidence of malignancy. BIRADS 1-Negative; N. 5 year breast cancer risk assessment 1.2 % Lifetime breast cancer risk assessment 8.6 % Breast cancer risk category Low (<15%) Cheyenne Wray MD IMG XR NM OCEDURES from Last 3 Months or Most Recently Relevant to Health Maintenance Care Teams Petroleum Inspector Supervisor Relationship Specialty Start Date End Date Patsy Waters MD PCP - General Internal Medicine 02/28/18
--- OUTSIDE RECORDS SUMMARY | 2024-09-07 17:34 | XMS_ITS | Encounter Summary ---
Author Organization [employer] Address [address] [facility] [address] [place] [address] Care Team Providers Care Bioinformatics Computer Scientist Name Role Phone Cheyenne Frausto MD Primary Care Pro vider Reason for Visit * Reason Comments Med Refill Encounter Details Date Type Department Care Team ([facility] st Contact Info) Description 04/10/2024 Refill [facility] [address] [place] [phone] Name, MD Jamshid [address] [place] [address] Social History Tobacco Use Types Packs/Day Years [...] Recorded What is your housing situation today? I have lexus schulte 05/28/[address] you li ve. Do you have problems with any of the following? None of the above 05/28/2023 Food Insecurity Answer Date Recorded Within the past 12 months, y ou worried that your food would run out before you got money to buy more: Never True 05/28/2023 Within the past 12 months,th e food you bought just didn't last and you didn't have enough money to get more: Never True Transportation Answer Date Recorded In the past 12 months, has l ack of transportation kept you from medical appts, meetings, work or from getting things needed for daily living? No 05/28/2023 Utilities Answer Date Recorded In the past 12 months, has t he electric, gas, oil or water company threatened to shut off services in your home? No 05/28/2023 Depression Answer Date Recorded Patient Health Questionnaire-2 Score 0 05/28/2023 Comments Unknown Sex and Gender Information Value Date Recorded Sex Assigned at Female 06/08/2022 10:20 AM EDT Legal Sex Female 10:20 AM EDT Gender Identity Female 06/08/2022 10:20 AM EDT Sexual Orientation Straight 04/28/2023 11 :17 AM EDT documented as of this encounter Miscellaneous Notes * Telephone Encounter - Cheyenne Wray MD - 04/11/2024 5:54 PM EDT Pt w hx of alcohol abuse ,high risk of bleeding,do not rec chronic NSAIDS use Thanks documented in this encounter Plan of Treatment Upcoming Encounters Date Type Department Care Team (Late st Contact Info) Description 10/03/2024 2:45 PM EST Office Visit [facility] [address] [place] [address] Cheyenne Donis MD [address] [place] [address] documented as of this encounter Goals Goal Patient Goal Type Associated Problems Recent Progress Patient-Stated? Author Smoking cessation General Tobacco user On track(06/28/20 6:05 PM EST) No Lara Morgan, PharmD documented as of this encounter Visit Diagnoses Not on filedocumented in this encounter Additional Health Concerns Assessment Noted Time PHQ-9 Depression Total Score: 1 05/28/20 9:15 AM EDT documented as of this encounter Care Teams Bioinformatics Computer Scientist Relationship Specialty Start Date End Date Cheyenne Frausto MD [address] [place] [phone] PCP - General Internal Medicine 03/30/23 documented as of this encounter
--- OUTSIDE RECORDS SUMMARY | 2024-09-07 17:34 | XMS_ITS | Clinical Summary ---
Author Organization [employer] Address [address] [place] [address] [address] [place] [address] Care Team Providers Care Licensed Professional Counselor Name Role Phone Cheyenne Frausto MD Primary Care Pro vider Allergies Active Allergy Reactions Criticality Noted Date Comments Codeine 05/02/2024 Penicillin V Hives,Unknown 09/22/2010 Medications oxybutynin XL (Ditropan-XL) 10 MG 24 hr tablet 0 Refills, Maintenance, 03/08/23 15:48:00 EDT, Partial fill upon patient request if the prescription is for a schedule II opioid drug. 3 Active lisinopril 30 MG tablet TAKE 1 TABLET BY MOUTH EVERY DAY 90 tablet 3 Active Additional Information Patient not taking.Reported on 05/02/2024 fexofenadine (April) 180 MG tabletIndication s:Allergy, sequela Take 1 tablet (180 mg) by mouth if needed each day (Allergies). 90 tablet 4 Active amLODIPine (Norvasc) 5 MG tabletIndication s:Primary hypertension TAKE 1 TABLET BY MOUTH EVERY DAY 90 tablet 4 Active atorvastatin (Lipitor) 10 MG tablet Take 1 tablet (10 mg) by mouth in the morning. 90 tablet 4 Active Active Problems Problem Noted Date Diagnosed Date Pancreatic cyst 05/02/2024 Dysphagia 12/10/2023 Ear itching 12/10/2023 Prediabetes 05/29/2023 Penicillin allergy 04/28/2023 DORANTES (dyspnea on exertion) 04/28/2023 Urinary incontinence 04/28/2023 Onychomycosis 04/28/2023 Anxiety and depression 04/28/2023 Alcohol abuse 04/28/2023 Health care maintenance 04/28/2023 Assessment & Plan (06/28/2023 6:02 PM EST): Assessment: - Due for Hepatitis B Vaccine series Plan: - Dose #1 Hepatitis B Vaccine administered Chronic low back pain 04/26/2023 Hypercholesterolemia 09/27/2019 Obesity (BMI 30-39.9) 2019 Hypertension 05/02/2018 Tobacco user 04/16/2016 Overview (06/28/2023): Pharmacotherapy: - None History: updated 06-28-2023 Smoking since age of 10. Smoked 1 PPD but is now down to about 1/2 PPD. Has first cigarette within 30 mins of waking up. Brushes teeth, prepares coffee, and smokes. Has become part of routine. Used patches and nicotine gum and chantix in the past with no success. X2. [facility]; but patientis not taking. Also not taking any psych meds x1 month (as of 06/28/23). Feels well without the medications. To be discussed with psychiatrist at next appt. Assessment & Plan (06/28/2023 6:05 PM EST): Assessment: - Not at goal of tobacco free goal Plan: - Start Nicotine Patches 14mg/patch daily - Chew 1 piece of gum at onset of smoking desire. Polymyalgia rheumatica 11/11/2010 Resolved Problems Problem Noted Date Diagnosed Date Resolved Date Backache 10/05/2011 04/28/2023 Depressive disorder 11/11/2010 04/28/20 23 Anxiety state 10/20/2010 04/28/2023 Palpitations 02/28/2010 04/28/2023 Encounters Date Type Department Care Team Description 08/08/2024 Telephone [facility] [address] [place] [phone] Cheyenne Frausto MD 07/27/2024 Orders Only [facility] [address] [place] [id number] ProviderTed MD 06/29/2024 Telephone [facility] [address] [place] [address] Virginie Zapata MA chart prep from Last 3 Months Immunizations Name Administration Dates Next Due Hep B, adult 06/28/2023 INFLUENZA INJECTABLE QUADRIV ALANT CCIIV4 MDCK Multi-dose vial 05/02/2018 Influenza Injectable Quadriv alant Preservative Free IIV4 MDCK 04/12/2020,2019 Influenza injectable quadriv alent IIV4 with preservative 07/08/2015 Influenza injectable quadrivalent preservative f ree 04/28/2023,04/16/2016 Influenza, IIV3, injectable 05/07/2014 Influenza, Split (incl. purified surface antigen ) 04/19/2012 Influenza, seasonal, injectable, preservative fr ee 05/02/2024 Pneumococcal Conjugate PCV 20 05/28/2023 TD (adult), 2 Lf tetanus tox oid, preservative free, adsorbed 06/13/2008 Tdap 12/18/2021 Zoster, Recombinant 04/12/2020 Family History Medical History Relation Name Comments DM2.HTN Brother DM2.HTN Mother Uterine cancer Mother DM2 Son Relation Name Status Comments Brother Mother Son Social History Tobacco Use Types Packs/Day Years Used Date Smoking Tobacco: Every Day Cigarettes 0.5 44.1 Started: 1980 Passive Smoke Exposure: Current Tobacco Cessation:Ready to Q uit: Not Asked; Counseling Given: Not Answered Comments:Started at 10 years of age ,stopped [...] Orientation Straight 04/28/2023 11 :17 AM EDT Last Filed Vital Signs Vital Sign Reading Time Taken Comments Blood Pressure 124/68 05/02/2024 10:56 AM EDT Pulse 62 05/02/2024 10:56 AM EDT Temperature 36.1 ??C (97 ??F) 05/02/2024 10:56 AM EDT Respiratory Rate 18 05/02/2024 10:56 AM EDT Oxygen Saturation 99% 05/02/2024 10:56 AM EDT Inhaled Oxygen Concentration - - Weight 74.8 kg (165 lb) 05/02/2024 10:56 AM EDT Height 154.9 cm (5' 1 ) 05/02/2024 10:56 AM EDT Body Mass Index 31.18 05/02/2024 10:56 AM EDT Plan of Treatment Upcoming Encounters Date Type Department Care Team (Late st Contact Info) Description 10/03/2024 2:45 PM EST Office Visit [facility] [address] [place] [address] Cheyenne Donis MD [address] [place] [address] Health Maintenance Due Date Last Done Comments CT Colonography 1968 FIT DNA/Cologuard 1968 FIT 1968 FOBT 1968 Sigmoidoscopy 1968 Alcohol/Substance Use Screening 1980 Hepatitis A Vaccines (1 of 2 - Risk 2-dose series) 1987 HPV/Cotest 1998 Zoster Vaccines (2 of 2) 06/07/2020 04/12/2020 Hepatitis B Vaccines (2 of 3 - 19+ 3-dose series) 07/26/2023 06/28/2023 COVID-19 Vaccine (3 - 2023- season) 2024 12/11/2020, 11/21/2020 SDOH Screening 04/20/2024 04/20/2023 Depression Screening 05/28/2024 05/28/2023, 05/28/20 Tobacco Screening 05/02/2025 05/02/2024 Diabetes: Hemoglobin A1C 07/17/2025 024, 01/25/2024, 04/30/2023, Additional history exists Lung Cancer Screening 08/11/2025 08/11/2024 Cervical Cancer Screening 10/01/2025 Pap Smear 10/01/2025 10/01/2022 Mammogram 12/14/2025 12/15/2023 Colonoscopy 03/08/2027 03/08/2024 Colorectal Cancer Screening 03/08/2027 Lipid Panel 07/17/2029 07/17/2024, 01/07, 04/30/2023, Additional history exists DTaP/Tdap/Td Vaccines (2 - Td or Tdap) 12/19/2031 12/18/2021, 06/13/2008 RSV Patients and Patients Aged 60 years or older (1 - 1-dose 75+ series) 2043 Pneumococcal Vaccine: 50+ Years Completed 05/28/2023 Influenza Vaccine Completed 05/02/2024, , 04/12/2020, Additional history exists HIV Screening Completed 07/17/2024, 04/10, 05/27/2022 Hepatitis C Screening Completed 07/17/2024 , 04/30/2023, 12/15/2021 HIB Vaccines Aged Out No longer eligi ble based on patient's age to complete this topic HPV Vaccines Aged Out No longer eligi ble based on patient's age to complete this topic IPV Vaccines Aged Out No longer eligi ble based on patient's age to complete this topic Meningococcal Vaccine Aged Out No kelly raulito eligible based on patient's age to complete this topic RSV under 20 months Aged Out No longe r eligible based on patient's age to complete this topic Rotavirus Vaccines Aged Out No longer eligible based on patient's age to complete this topic Goals Goal Patient Goal Type Associated Problems Recent Progress Patient-Stated? Author Smoking cessation General Tobacco user On track(06/28/20 6:05 PM EST) No Lara Morgan PharmD Procedures Procedure Name Priority Date/Time Associated Diagnosis Comments LDCT LUNG SCREENING Routine 08/11/2024 1 0:12 AM EST VITAMIN B12/FOLATE, SERUM PANEL Routine 07/17/2024 8:29 AM EST Annual physical exam VITAMIN D,25-OH,TOTAL,IA Routine 07/17/2024 8:29 AM EST Annual physical exam TSH W/REFLEX TO FT4 Routine 07/17/2024 8 :29 AM EST Annual physical exam SYPHILIS SCREEN Routine 07/17/2024 8:29 AM EST Annual physical exam LIPID PANEL, STANDARD Routine 07/17/2024 8:29 AM EST Annual physical exam HIV 1/2 ANTIGEN/ANTIBODY, FOURTH GENERATION W/RFL Routine 07/17/2024 8:29 AM EST Annual physical exam HEPATITIS C AB W/REFL TO HCV RNA, QN, PCR Routine 07/17/2024 8:29 AM EST Annual physical exam HEPATITIS B SURFACE ANTIGEN, EIA Routine 07/17/2024 8:29 AM EST Annual physical exam HEPATITIS B SURFACE ANTIBODY, QUALITATIVE Routine 07/17/2024 8:29 AM EST Annual physical exam HEPATITIS B CORE AB TOTAL Routine 07/17/2024 8:29 AM EST Annual physical exam HEMOGLOBIN A1C Routine 07/17/2024 8:29 AM EST Annual physical exam COMPREHENSIVE METABOLIC PANEL Routine 07/17/2024 8:29 AM EST Annual physical exam CBC Routine 07/17/2024 8:29 AM EST Annual physical exam ALBUMIN, RANDOM URINE W/CREATININE Routine 07/17/2024 8:29 AM EST Annual physical exam CHLAMYDIA/N. GONORRHOEAE RNA, TMA, UROGENITAL Routine 07/17/2024 8:29 AM EST Annual physical exam HM COLONOSCOPY Routine 03/08/2024 12:22 PM EDT BI MAMMOGRAM SCREENING TOMOSYNTHESIS BILATERAL Routine 12/15/2023 Breast cancer screening by mammogram HM PAP/HPV Routine 10/01/2022 from Last 3 Months or Most Recently Relevant to Health Maintenance Results * CT Lung Screening Low dose (08/11/2024 10:12 AM EST) Anatomical Region Laterality Modality Lung Computed Tomogra phy 08/11/2024 10:1 2 AM EST Narrative 08/14/2024 7:31 AM EST ? [facility] ?[address] ?[place] [address] ? CT Scan Report ? Signed ? Patient: Kinney,Cheyenne ?MR#: [id number] ?? 0 ? : 1970 ?Acct:[id number] ? Age/Sex: 53 / F ?ADM Date: 01/03/25 ? Loc: HO.CT ? Attending Dr: Lori KUMARI-C ? Ordering Physician: Lori Guthrie PA-C ?? Date of Service: 08/11/24 ?? Procedure(s): CT lung screening ?? Accession Number(s): [id number] ? cc: Lori Guthrie PA-C; Cheyenne Frausto MD ? Report Number: ?? [id number]: Total DLP = ?? 56.00 mGy-cm ?? [...] signed by Mauricio Garibay MD in OV> ?08/14/24 0728 ? DD/ 1012 ? TD/TT: 08/11/24 1103 ? Buttonhole Marker: ? Procedure Note Isaac, Image - 08/14/[address] [address] [address] Scan Report Signed Patient: Asuncion Kinney#: [id number] 0 : 1970Acct:[id number] Age/Sex: 53 / FADM Date: 08/11/24 Loc: .CT Attending Dr: Lori Guthrie PA-C Ordering Physician: Lori Guthrie PA-C Date of Service: 08/11/24 Procedure(s): CT lung screening Accession Number(s): [id number] cc: Lori Guthrie PA-C; Cheyenne Frausto MD Report Number: [id number]: Total DLP = 56.00 mGy-cm EXAMINATION: CT [...] by: Mauricio Garibay MD 08/14/2024 07:28 AM [facility] Dictated By: Mauricio Garibay MD Signed By: <Electronically signed by Mauricio Garibay MD in OV> 08/14/24 0728 DD/ 1012 TD/TT: 08/11/24 1103 Buttonhole Marker: [facility] External Provider IMG CT PROCEDURES Edited Result - Final * Syphilis Screen (07/17/2024 8:29 AM EST) Syphilis Screen Nonreactive Nonreactive [facility] Blood 07/17/2024 8:29 AM EST 07/17/2024 11:50 AM EST Cheyenne Wray MD LAB BLOOD ORDERAB LES Final Result Performing Organization Address City/[facility]/ZIP Co de Phone Number [facility] [address] [place] [phone] * Vitamin D, 25-Hydroxy, Total, Immunoassay (07/17/2024 8:29 AM EST) Vitamin D 25-OH Total 35.2 >30 ng/mL [facility] Comment:Health Based Referen ce Values*< 20 ng/mL Xbkijotyu64-71 ng/mL Insufficient> 30 ng/mL Sufficient*Leroy MCCAULEY. N Engl J Med. 2007;357:266-280Care must be taken in interpreting Vitamin D results fromdifferent laboratories and methodologies. Published datademonstrated that results from patients undergoinghemodialysis may show a negative bias when tested withvarious automated 25-OH vitamin D assays when compared toLC-MS/MS.When testing samples from patients whose predominant form ofVitamin D is Vitamin D2, such as patients receiving VitaminD2 supplementation, results that are subtherapeutic shouldbe confirmed with another method such as LC-MS/MS. Blood Venous blood specimen / Unknown 07/17/2024 8:29 AM EST 07/17/2024 11:38 AM EST Cheyenne Wray MD LAB BLOOD ORDERAB LES Final Result Performing Organization Address City/[facility]/ZIP Co de Phone Number [facility] [address] [place] [phone] * Vitamin B12 (Cobalamin) and Folate Panel, Serum (07/17/2024 8:29 AM EST) Pathologist [facility] Vitamin B12 490 200 - 900 pg/mL [facility] Comment:NORMAL 200-900 PG/ML INDETERMINATE 160-199 PG/ML DEFICIENT < 160 PG/ML Folate 7.3 > or = 4.0 ng/mL [facility] Comment:Reference Values:> o r = 4.0 ng/mL< 4.0 ng/mL suggests folate deficiency Methotrexate, aminopterin and folinic acid(leucovorin) are chemotherapeutic agents whose molecularstructures are similar to folate; therefore, the Architectfolate assay cannot be used for patients using these drugs. Blood 07/17/2024 8:29 AM EST 07/17/2024 11:38 AM EST Cheyenne Wray MD LAB BLOOD ORDERAB LES Final Result Performing Organization Address City/[facility]/ZIP Co de Phone Number [facility] [address] [place] [phone] * TSH with Reflex to Free T4 (07/17/2024 8:29 AM EST) Pathologist [facility] TSH reflex Free T4 1.87 0.32 - 4.0 uIU/mL [facility] Blood 07/17/2024 8:29 AM EST 07/17/2024 11:38 AM EST us Cheyenne Wray MD LAB BLOOD ORDERAB LES Final Result [facility] [address] [place] [phone] * Albumin, Random Urine W/Creatinine (07/17/2024 8:29 AM EST) Pathologist [facility] Creatinine, Urine 145.37 mg/dL [facility] Microalbumin Urine 19.0 mg/L [facility] Microalbum Creatinine Ratio Ur 13.0 <30 ug/mg cr [facility] Comment:Albumin/Creatinine R atio Reference Ranges: Normal: < 30 ug/mg creatinine Microalbuminuria: 30 - 300 ug/mg creatinineClinical Albuminuria: > 300 ug/mg creatinine Urine (Urine, Random) 07/17/2024 8:29 AM EST 07/17/2024 11:21 AM EST Cheyenne Wray MD LAB URINE ORDERAB LES Final Result Performing Organization Address [facility] Co de Phone Number [facility] [address] [place] [phone] * Hepatitis C Antibody with Reflex to HCV, RNA, Quantitative, Real-Time PCR (07/17/2024 8:29 AM EST) [facility] Hepatitis C Antibody Nonreactive Nonreactive [facility] Comment:Antibodies to HCV no t detected; does not exclude early acuteHCV infection. Blood Venous blood specimen / Unknown 07/17/2024 8:29 AM EST 07/17/2024 11:38 AM EST Cheyenne Wray MD LAB BLOOD ORDERAB LES Final Result Performing Organization Address [facility] de Phone Number [facility] [address] [place] [address] [phone] * Chlamydia/N. Gonorrhoeae RNA, TMA, Urogenitial (07/17/2024 8:29 AM EST) Pathologist [facility] CT PCR NOT DETECTED Not Detect. [facility] Comment:A not detected test result does not exclude the possibilityof infection because test results can be affected byimproper specimen collection, concurrent antibiotic therapy,or the number of organisms in the specimen which may bebelow the sensitivity of the test. As with many diagnostictests, results from the Xpert CT/NG assay should beinterpreted in conjunction with other laboratory andclinical data available to the clinician.Xpert CT/NG performance has not been evaluated in patientsless than 14 years of age. The assay should not be used forthe evaluationof suspected sexual abuse or for other medico-legalindications. Additional testing is recommended in anycircumstance when false positive or false negative resultscould lead to adverse medical, social or psychologicalconsequences. NG PCR NOT DETECTED Not Detect. [facility] Comment:A not detected test result does not exclude the possibilityof infection because test results can be affected byimproper specimen collection, concurrent antibiotic therapy,or the number of organisms in the specimen which may bebelow the sensitivity of the test. As with many diagnostictests, results from the Xpert CT/NG assay should beinterpreted in conjunction with other laboratory andclinical data available to the clinician.Xpert CT/NG performance has not been evaluated in patientsless than 14 years of age. The assay should not be used forthe evaluationof suspected sexual abuse or for other medico-legalindications. Additional testing is recommended in anycircumstance when false positive or false negative resultscould lead to adverse medical, social or psychologicalconsequences. Urine Urethral structure / Unknown 07/17/2024 8:29 AM EST 07/17/2024 11:21 AM EST Narrative [facility] - 07/17/2024 1:34 PM EST Urine us Cheyenne Wray MD LAB MICROBIOLOGY - GENERAL ORDERABLES Final Result Performing Organization Address [facility]/ZIP Co de Phone Number [facility] [address] [place] [phone] * Hepatitis B surface antigen, EIA (07/17/2024 8:29 AM EST) Hepatitis B Surface Ag Negative Negative [facility] Blood Venous blood specimen / Unknown 07/17/2024 8:29 AM EST 07/17/2024 11:38 AM EST us Cheyenne Wray MD LAB BLOOD ORDERAB LES Final Result Performing Organization Address [facility] Co de Phone Number [facility] [address] [place] [phone] * Hepatitis B Core Antibody, Total (07/17/2024 8:29 AM EST) [facility] Hepatitis B Core Antibody Nonreactive Nonreactive [facility] Blood Venous blood specimen / Unknown 07/17/2024 8:29 AM EST 07/17/2024 11:38 AM EST us Cheyenne Wray MD LAB BLOOD ORDERAB LES Final Result Performing Organization Address City/[facility]/ZIP Co de Phone Number [facility] [address] [place] [phone] * HIV-1/2 Antigen and Antibodies, Fourth Generation, with Reflexes (07/17/2024 8:29 AM EST) [facility] HIV AB/AG Nonreactive Nonreactive [facility] Comment:HIV-1 p24 Ag and/or HIV-1/HIV-2 Ab not detected.A test result that is nonreactive does not exclude thepossibility of exposure to or infection with HIV-1 and/orHIV-2. Nonreactive results in this assay for individualswith prior exposure to HIV-1 and/or HIV-2 may be due toantigen and antibody levels that are below the limit ofdetection of this assay.The [employer] HIV Ag/Ab Combo assay result andsupplemental assay results should be interpreted inconjunction with the patient's clinical presentation,history and other laboratory results. If the results areinconsistent with clinical evidence, additional testing issuggested to confirm the result. Blood Venous blood specimen / Unknown 07/17/2024 8:29 AM EST 07/17/2024 11:38 AM EST us Cheyenne Wray MD LAB BLOOD ORDERAB LES Final Result Performing Organization Address City/[facility]/ZIP Co de Phone Number [facility] [address] [place] [phone] * Hepatitis B Surface Antibody, Qualitative (07/17/2024 8:29 AM EST) [facility] ~Hepatitis B Surface Antibody NONREACTIVE Nonreactive [facility] Comment:Nonreactive: < 8.00 mIU/mL Blood Venous blood specimen / Unknown 07/17/2024 8:29 AM EST 07/17/2024 11:38 AM EST us Cheyenne Wray MD LAB BLOOD ORDERAB LES Final Result Performing Organization Address City/[facility]/ZIP Co de Phone Number [facility] [address] [place] [phone] * CBC (07/17/2024 8:29 AM EST) White Blood Count 7.2 4.8 - 10.8 X10*3/uL [facility] Red Blood Count 4.55 4.20 - 5.50 X10*6/uL [facility] Hemoglobin 14.0 12.0 - 16.0 g/dl [facility] Hematocrit 42.0 37.0 - 47.0 % [facility] Mean Corpuscular Volume 92.3 80.0 - 98.0 fL [facility] Mean Corpuscular Hemoglobin 30.8 27.0 - 33.0 pg [facility] Mean Corpuscular HGB Conc 33.3 31.0 - 35.0 g/dl [facility] Red Cell Distribution Width 13.2 11.0 - 16.0 % [facility] Platelet Count 205 160 - 400 X10*3/uL [facility] Mean Platelet Volume 11.1 9.4 - 12.3 fL [facility] NRBC Pct Auto 0.0 0.0 - 0.2 /100WBC [facility] NRBC Abs Auto 0.000 0.0 - 0.012 X10*3/uL [facility] Blood Venous blood specimen / Unknown 07/17/2024 8:29 AM EST 07/17/2024 11:39 AM EST us Cheyenne Wray MD LAB BLOOD ORDERAB LES Final Result [facility] [address] [place] [phone] * Hemoglobin A1c (07/17/2024 8:29 AM EST) Hemoglobin A1c 5.8 <6.0 % [facility] Comment:Hemoglobin A1C Refer ence Range Adults: 4.8 - 6.0 % Non diabetic: < 6.0 % Goal: < 7.0 %Additional Action Suggested: > 8.0 %Note: Hemoglobin A1c results are invalid for patients with abnormal amounts of HbF. Blood transfusions may impact the HbA1c concentration in the patient sample. Estimated Average Glucose 120 mg/dL [facility] Comment:eAG = Estimated ave rage glucose which is %A1C expressed asaverage glucose, using the formula of the C9F-[id number] Glucose study (ADAG), Diabetes Care, Vol.31,#8,Mar. 2007 Blood Venous blood specimen / Unknown 07/17/2024 8:29 AM EST 07/17/2024 11:39 AM EST us Cheyenne Wray MD LAB BLOOD ORDERAB LES Final Result [facility] [address] [place] [address] [phone] * (ABNORMAL) Lipid Panel, Standard (07/17/2024 8:29 AM EST) Triglycerides 119 <150 mg/dL [facility] Comment:Desirable Triglyceri de: less than 150 mg/dLBorderline High Triglyceride 150-199 mg/dLHigh Triglyceride: 200-499 mg/dLVery High Triglyceride: greater than or equal to 5OO mg/dL Cholesterol 187 <200 mg/dL [facility] Comment:Desirable Cholestero l: less than 200 mg/dLBorderline High Cholesterol: 200-239 mg/dLHigh Cholesterol: greater than 239 mg/dL LDL Cholesterol Calculated 109(H) <100 mg/dL [facility] Comment:Desirable LDL: less than 100 mg/dLNear Optimal/Above Optimal LDL: 110- 129 mg/dLBorderline High LDL: 130-159 mg/dLHigh LDL: 160-189 mg/dLVery High LDL: greater than or equal to 190 mg/dL HDL Cholesterol 55 >40 mg/dL [facility] Comment:Desirable HDL: great er than 40 mg/dL Note: This HDL assay may give artificially low results in patients with liver disease. Blood Venous blood specimen / Unknown 07/17/2024 8:29 AM EST 07/17/2024 11:38 AM EST us Cheyenne Wray MD LAB BLOOD ORDERAB LES Final Result [facility] [address] [place] [phone] * (ABNORMAL) Comprehensive Metabolic Panel (07/17/2024 8:29 AM EST) Sodium 142 135 - 145 mmol/L [facility] Potassium 4.0 3.3 - 5.1 mmol/L [facility] Chloride 110(H) 96 - 108 mmol/L [facility] Carbon Dioxide 28 22 - 29 mmol/L [facility] Anion Gap 8(L) 12 - 20 [facility] Urea Nitrogen (BUN) 18(H) 9 - 16 mg/dL [facility] Creatinine, Serum 0.64 0.5 - 1.4 mg/dL [facility] Estimated Glomerular Filt Rate >60 [facility] Comment:Chronic Kidney Disea se: Estimated GFR < 60 mL/min/[id number] Kidney Disease: Estimated GFR < 15 mL/min/1.73m2 Glucose 109 60 - 115 mg/dL [facility] Calcium 8.7 8.4 - 10.2 mg/dL [facility] Bilirubin, Total 0.7 0.0 - 1.0 mg/dL [facility] Aspartate Amino Transferase 19 5 - 31 U/L [facility] Alanine Aminotransferase 22 0 - 31 U/L [facility] Total Protein 6.6 6.5 - 8.0 g/dL [facility] Albumin Level 3.9 3.5 - 5.0 g/dL [facility] Alkaline Phosphatase 97 39 - 117 U/L [facility] Blood Venous blood specimen / Unknown 07/17/2024 8:29 AM EST 07/17/2024 11:38 AM EST Cheyenne Wray MD LAB BLOOD ORDERAB LES Final Result [facility] [address] [place] [phone] * Colonoscopy (03/08/2024 12:22 PM EDT) Historical Provider HEALTH MAINTENANCE Final Result * BI Mammogram Screening Tomosynthesis Bilateral (12/15/2023) Anatomical Region Laterality Modality Breast Bilateral Mammography Cheyenne Wray MD IMG BI PROCEDURES Final Result * Pap Smear (10/01/2022) Pap smear perform Historical Provider HEALTH MAINTENANCE Final Result from Last 3 Months or Most Recently Relevant to Health Maintenance Insurance [facility] C3 HSN PARTIAL Care Teams Licensed Professional Counselor Relationship Specialty Start Date End Date Cheyenne Frausto MD [address] [place] [address] PCP - General Internal Medicine 03/30/23
--- OUTSIDE RECORDS SUMMARY | 2024-09-07 17:34 | XMS_ITS | Encounter Summary ---
Author Organization [employer] Address [address] [place] [address] Care Team Providers Care Director Industrial Relations Name Role Phone Cheyenne Frausto MD Primary Care Pro vider Encounter Details Date Type Department Care Team ([facility] st Contact Info) Description 08/08/2024 Telephone [facility] MEDICINE [address] [place], [place] [phone] Cheyenne Frausto MD 230 [place] [address] Social History Tobacco Use Types Packs/Day Years [...] Description 10/03/2024 2:45 PM EST Office Visit [facility] MEDICINE [address] [place] [address] Cheyenne Donis MD [address] [place] [address] documented as of this encounter Goals Goal [...] documented as of this encounter Care Teams Director Industrial Relations Relationship Specialty Start Date End Date Cheyenne Frausto MD [address] [place] [address] PCP - General Internal Medicine 03/30/23 documented as of this encounter
--- OUTSIDE RECORDS SUMMARY | 2024-09-07 17:34 | XMS_ITS | Encounter Summary ---
Author Organization [employer] Address [address] [place] [address] Care Team Providers Care Steward/Stewardess Banquet Name Role Phone Cheyenne Frausto MD Primary Care Pro vider Reason for Visit * Reason Onset Date Comments Reschedule 11/03/2023 Encounter Details Date Type Department Care Team ([facility] st Contact Info) Description 11/03/2023 Telephone [facility] MEDICINE 230 [place], [place] [phone] Cheyenne Frausto MD 230 [place] [address] Reschedule Social History Tobacco Use Types Packs/Day Years [...] encounter Miscellaneous Notes * Telephone Encounter - Dorcas Dutta - 11/03/2023 1:24 PM EDT Tc from pt requesting r/s f/u extended visit. documented in this encounter Plan of Treatment Upcoming Encounters Date Type Department Care Team (Late st Contact Info) Description 10/03/2024 2:45 PM EST Office Visit [facility] MEDICINE [address] [place] [address] Cheyenne Donis MD 230 [place] [address] documented as of this encounter Goals Goal Patient Goal Type Associated Problems Recent Progress Patient-Stated? Author Smoking cessation General Tobacco user On track(06/28/20 6:05 PM EST) No Lara Morgan, eLxaD documented as of this encounter Visit Diagnoses Not on filedocumented in this encounter Additional Health Concerns Assessment Noted Time PHQ-9 Depression Total Score: 1 05/28/20 9:15 AM EDT documented as of this encounter Care Teams Steward/Stewardess Banquet Relationship Specialty Start Date End Date Cheyenne Frausto MD [address] [place] [address] PCP - General Internal Medicine 03/30/23 documented as of this encounter
--- OUTSIDE RECORDS SUMMARY | 2024-09-07 17:34 | XMS_ITS | Encounter Summary ---
Author Organization [employer] Address [address] [place] [address] 7 [place] [address] Care Team Providers Care Therapeutic Specialist Name Role Phone Cheyenne Frausto MD Primary Care Pro vider Reason for Visit * Reason Comments Med Refill Encounter Details Date Type Department Care Team ([facility] st Contact Info) Description 01/19/2024 Refill [facility] MEDICINE 230 [place], [place] [phone] Karthikeyan Walker MD 230 [place] [address] Primary hypertension Social History Tobacco Use Types Packs/Day Years [...] Description 10/03/2024 2:45 PM EST Office Visit [facility] MEDICINE [address] [place] [phone] Cheyenne Donis MD [address] [place] [phone] documented as of this encounter Goals Goal Patient Goal Type Associated Problems Recent Progress Patient-Stated? Author Smoking cessation General Tobacco user On track(06/28/20 6:05 PM EST) No Lara Morgan, LexaD documented as of this encounter Visit Diagnoses Diagnosis Primary hypertension Unspecified essential hypertension documented in this encounter Additional Health Concerns Assessment Noted Time PHQ-9 Depression Total Score: 1 05/28/20 9:15 AM EDT documented as of this encounter Care Teams Therapeutic Specialist Relationship Specialty Start Date End Date Cheyenne Frausto MD [address] [place] [address] PCP - General Internal Medicine 03/30/23 documented as of this encounter
== END 2024-09-07 14:50 | disposition home or self-care (01) ==
PROVIDERS: PCP Student in an Organized Health Care Education/Training Program; Visit Provider Internal Medicine Cardiovascular Disease
DX: R06.02 Shortness of breath (principal)
CPT/HCPCS: 93010; 99204

== ENCOUNTER → 2024-09-07 13:43 | Outpatient (BNVA) | payer MEDICAID, SELFPAY | PROVIDERS: PCP Student in an Organized Health Care Education/Training Program; Visit Provider Internal Medicine Cardiovascular Disease | DX: R06.02 Shortness of breath (principal) | CPT/HCPCS: 93005; 99202 ==

== ENCOUNTER → 2024-09-18 10:08 | Outpatient (REF) | LOC: HO.CARD 10:08 | DX: R06.02 Shortness of breath (principal) | CPT/HCPCS: 93017 ==

== ENCOUNTER → 2024-09-18 10:11 | Outpatient (BNV) | payer MEDICAID, SELFPAY | PROVIDERS: PCP Student in an Organized Health Care Education/Training Program | DX: R94.31 Abnormal electrocardiogram [ECG] [EKG] (principal) | CPT/HCPCS: 93016; 93018 ==

== ENCOUNTER 2024-10-03 15:39 | Outpatient (REF) | payer MEDICAID, SELFPAY ==
--- OUTSIDE RECORDS SUMMARY | 2024-10-03 19:23 | XMS_ITS | Encounter Summary ---
Author Organization [employer] Address [address] [facility] 7t [place] [address] Care Team Providers Care Carton Making Machine Operator Name Role Phone Cheyenne Frausto MD Primary Care Pro vider Reason for Visit * Reason Comments Med Refill Encounter Details Date Type Department Care Team ([facility] st Contact Info) Description 04/10/2024 Refill [facility] [address] [place] [address] [phone] Name, MD Jamshid 230 [place] [address] Social History Tobacco Use Types Packs/Day Years Used Date Smoking Tobacco: Every Day Cigarettes 0.5 44.2 Started: 1980 Passive Smoke Exposure: Current Comments:Started [...] documented in this encounter Plan of Treatment Not on file documented as of this encounter Goals Goal [...] documented as of this encounter Care Teams Carton Making Machine Operator Relationship Specialty Start Date End Date Cheyenne Frausto MD [address] [place] [address] PCP - General Internal Medicine 03/30/23 documented as of this encounter
--- OUTSIDE RECORDS SUMMARY | 2024-10-03 19:23 | XMS_ITS | Encounter Summary ---
Author Organization [employer] Address [address] [place] [address] Care Team Providers Care Claims Assistant Name Role Phone Cheyenne Frausto MD Primary Care Pro vider Reason for Visit * Reason Onset Date Comments Reschedule 11/03/2023 Encounter Details Date Type Department Care Team ([facility] st Contact Info) Description 11/03/2023 Telephone [facility] MEDICINE 230 [place], [place] [phone] Cheyenne Frausto MD 230 [place], [place] [phone] Reschedule Social History Tobacco Use Types Packs/Day [...] documented as of this encounter Care Teams Claims Assistant Relationship Specialty Start Date End Date Cheyenne Frausto MD [address] [place] [address] [phone] PCP - General Internal Medicine 03/30/23 documented as of this encounter
--- OUTSIDE RECORDS SUMMARY | 2024-10-03 19:23 | XMS_ITS | Encounter Summary ---
Author Organization [employer] Address [address] [place] [address] 7 [place] [address] Care Team Providers Care Cat Scan Technologist Name Role Phone Cheyenne Frausto MD Primary Care Pro vider Reason for Visit * Reason Comments Acupuncture Encounter Details Date Type Department Care Team ([facility] Contact Info) Description 09/28/2024 10:00 AM EST Office Visit [facility] MEDICINE 230 [place], [place] [phone] Didi Mejia MD 230 [place] [address] Anxiety and depression (Primary Dx) Social History Tobacco Use Types Packs/Day Years [...] housing situation today? I have [employer] sch[employer]te 09/19/[address] you li ve. Do you have problems with any of the following? None of the above 09/19/2024 Food Insecurity Answer Date Recorded Within the [...] AM EDT documented as of this encounter Progress Notes * Didi Mejia MD - 09/28/2024 10:00 AM EST Subjective Patient ID: Cheyenne Kinney is a 54 y.o. female who presents for Acupuncture. Cheyenen is here for acupuncture treatment #1. She is interested in addressing stress and anxiety. No previous experience with acupuncture. She was referred here by her PCP. Review of Systems Psychiatric/Behavioral: The patient is nervous/anxious. Objective Physical Exam Constitutional: Appearance: Normal appearance. Skin: General: Skin is warm and dry. Neurological: Mental Status: She is alert and oriented to person, place, and time. Assessment/Plan Diagnoses and all orders for this visit: Anxiety and depression Written consent obtained for ear acupuncture. Ears prepped with alcohol pad. Five ear points needled bilaterally: Sympathetic, S[place] Men, Kidney, Liver and Lung. Treatment duration: 30 minutes. Good hemostasis. Patient tolerated well. Follow up weekly for repeat acupuncture treatments as desired. documented in this encounter Plan of Treatment Not on file documented as of this encounter Goals Goal Patient Goal Type Associated Problems Recent Progress Patient-Stated? Author Smoking cessation General Tobacco user On track(06/28/20 6:05 PM EST) No Lara Morgan, LexaD documented as of this encounter Visit Diagnoses Diagnosis Anxiety and depression- Primary documented in this encounter Additional Health Concerns Assessment Noted Time PHQ-9 Depression Total Score: 1 05/28/20 9:15 AM EDT documented as of this encounter Care Teams Cat Scan Technologist Relationship Specialty Start Date End Date Cheyenne Frausto MD [address] [place] [phone] PCP - General Internal Medicine 03/30/23 documented as of this encounter
--- OUTSIDE RECORDS SUMMARY | 2024-10-03 19:23 | XMS_ITS | Encounter Summary ---
Author Organization [employer] Address [address] [facility] 7t [place] [address] Care Team Providers Care Director Electrical Engineering Name Role Phone Cheyenne Frausto MD Primary Care Pro vider Encounter Details Date Type Department Care Team (Late st Contact Info) Description 07/27/2024 Orders Only [facility] MEDICINE 230 [place] [address] Provider, MD Ted Social History Tobacco Use [...] as of this encounter Plan of Treatment Not on file documented as of this encounter Goals Goal Patient Goal Type Associated Problems Recent Progress Patient-Stated? Author Smoking cessation General Tobacco user On track(06/28/20 6:05 PM EST) No Lara Morgan, LexaD documented as of this encounter Procedures Procedure Name Priority Date/Time Associated Diagnosis Comments LDCT LUNG SCREENING Routine 08/11/2024 1 0:12 AM EST HM COLONOSCOPY Routine 03/08/2024 12:22 PM EDT documented in this encounter Results * CT Lung Screening Low dose (08/11/2024 10:12 AM EST) Anatomical Region Laterality Modality Lung Computed Tomogra phy 08/11/2024 10:1 2 AM EST Narrative 08/14/2024 7:31 AM EST ? [facility] ?[address] ?[place] [address] ? CT Scan Report ? Signed ? Patient: Kinney,Cheyenne ?MR#: [id number] ?? 0 ? : 1970 ?Acct:[id number] ? Age/Sex: 53 / F ?ADM Date: 01/03/25 ? Loc: HO.CT ? Attending Dr: Lori Guthrie PA-C ? Ordering Physician: Lori Guthrie PA-C ?? Date of Service: 08/11/24 ?? Procedure(s): CT lung screening ?? Accession Number(s): [id number] ? cc: Lori Guthrie PA-C; Cheyenne Frausto MD ? Report Number: ?? [id number]: Total DLP = ?? 56.00 mGy-cm ?? [...] Garibay MD in OV> ?08/14/24 0728 ? DD/DT: //25 1012 ? TD/TT: 08/11/ 1103 ? Leak Detection Engineer: ? Procedure Note Donotuseinterpreter, Image - 08/14/[address] [address] [address] Scan Report Signed Patient: Asuncion Kinney#: [id number] 0 : 1970Acct:[id number] Age/Sex: 53 / FADM Date: 08/11/24 Loc: HO.CT Attending Dr: Lori Guthrie PA-C Ordering Physician: Lori Guthrie PA-C Date of Service: 08/11/24 Procedure(s): CT lung screening Accession Number(s): [id number] cc: Lori Guthrie PA-C; Cheyenne Frausto MD Report Number: [id number]: Total DLP = 56.00 mGy-cm EXAMINATION: CT [...] by: Mauricio Garibay MD 08/14/2024 07:28 AM [facility] Dictated By: Mauricio Garibay MD Signed By: <Electronically signed by Mauricio Garibay MD in OV> 08/14/24 0728 DD/ 1012 TD/TT: 08/11/24 1103 Leak Detection Engineer: [facility] External Provider IMG CT PROCEDURES Edited Result - Final * Hm Colonoscopy (03/08/2024 12:22 PM EDT) Historical Provider HEALTH MAINTENANCE Final Result documented in this encounter Visit Diagnoses Not on filedocumented in this encounter Additional Health Concerns Assessment Noted Time PHQ-9 Depression Total Score: 1 05/28/20 23 9:15 AM EDT documented as of this encounter Care Teams Director Electrical Engineering Relationship Specialty Start Date End Date Cheyenne Frausto MD [address] [place] [address] PCP - General Internal Medicine 03/30/23 documented as of this encounter
--- OUTSIDE RECORDS SUMMARY | 2024-10-03 19:23 | XMS_ITS | Encounter Summary ---
Author Organization [employer] Address [address] [place] [address] Care Team Providers Care School Psychology Specialist Name Role Phone Cheyenne Frausto MD Primary Care Pro vider Reason for Visit * Reason Comments Pre-visit Planning SDOH screening negat elisa and tobacco screeningpositive Encounter Details Date Type Department Care Team ([facility] st Contact Info) Description 09/19/2024 Patient Outreach [facility] MEDICINE 230 [place], [place] [phone] Cheyenne Frausto MD 230 [place] [address] Pre-visit Planning (SDOH screening negative and tobacco screeningpositive) Social History Tobacco Use Types Packs/Day Years [...] the past 12 months, has t he [employer], gas, oil or water 2,10E+07 threatened to shut off services in your [...] as of this encounter Progress Notes * Mickie Winn - 09/19/2024 11:10 AM EST JESSICA Corado placed successful outbound call to patient for pre-visit planning. Patient name and confirmed. Patient confirms appt date and time, and has transportation. Biggest concern for appointment at this time is referral to a chiropractor Patient advised to bring to appointment a photo id andinsurance card. Appropriate screenings completed in anticipation of appointment. documented in this encounter Plan of Treatment [...] documented as of this encounter Care Teams School Psychology Specialist Relationship Specialty Start Date End Date Cheyenne Frausto MD [address] [place] [address] PCP - General Internal Medicine 03/30/23 documented as of this encounter
--- OUTSIDE RECORDS SUMMARY | 2024-10-03 19:23 | XMS_ITS | Clinical Summary ---
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
--- OUTSIDE RECORDS SUMMARY | 2024-10-03 19:23 | XMS_ITS | Encounter Summary ---
Author Organization [employer] Address [address] [facility] 7t [place] [address] Care Team Providers Care Cutting Inspector Name Role Phone Cheyenne Frausto MD Primary Care Pro vider Encounter Details Date Type Department Care Team (Latest Contact Info) Description 09/28/2024 Travel Social History Tobacco Use Types Packs/Day Years [...] documented as of this encounter Care Teams Cutting Inspector Relationship Specialty Start Date End Date Cheyenne Frausto MD [address] [place] [address] PCP - General Internal Medicine 03/30/23 documented as of this encounter
--- OUTSIDE RECORDS SUMMARY | 2024-10-03 19:23 | XMS_ITS | Encounter Summary ---
Author Organization [employer] Address [address] [place] [address] 7 [place] [address] Care Team Providers Care Broom Man Name Role Phone Cheyenne Frausto MD Primary Care Pro vider Reason for Visit * Reason Comments Acupuncture Encounter Details Date Type Department Care Team ([facility] st Contact Info) Description 10/03/2024 1:30 PM EST Office Visit [facility] MEDICINE 230 [place], [place] [phone] Leslye Mora MD 230 [place], [place] [phone] Anxiety and depression (Primary Dx) Social History [...] Answer Date Recorded Patient Health Questionnaire-9 Score 0 10/03/2024 Patient Health Questionnaire-9 Score 0 10/03/2024 Last PHQ-9: Questionnaire Data Not on file 0 10/03/2024 Housing Stability Answer Date Recorded What is [...] Date Recorded Patient Health Questionnaire-2 Score 0 10/03/2024 Internet Access Answer Date Recorded Internet Access Q1 Yes 04/25/2024 Internet Access Q2 Not on file 04/25/2024 Comments Unknown Sex and Gender Information Value Date Recorded Sex Assigned at Female 06/08/2022 10:20 AM EDT Legal Sex Female 10:20 AM EDT Gender Identity Female 06/08/2022 10:20 AM EDT Sexual Orientation Straight 04/28/2023 11 :17 AM EDT documented as of this encounter Progress Notes * Leslye Mora MD - 10/03/2024 1:30 PM EST Subjective Patient ID: Cheyenne Kinney is a 54 y.o. female who presents for Acupuncture. Cheyenne is here for acupuncture treatment #2. She is interested in addressing stress and anxiety. No previous experience with acupuncture. She was referred here by her PCP. She is not on blood thinners. She reports mild relaxation after first treatment. Review of Systems Psychiatric/Behavioral: The patient is [...] Assessment Noted Time PHQ-9 Depression Total Score: 0 10/03/19 3:32 PM EST documented as of this encounter Care Teams Broom Man Relationship Specialty Start Date End Date Cheyenne Frausto MD [address] [place] [phone] PCP - General Internal Medicine 03/30/23 documented as of this encounter
--- OUTSIDE RECORDS SUMMARY | 2024-10-03 19:23 | XMS_ITS | Clinical Summary ---
Author Organization [facility] Address [address] [place] [phone] Care Team Providers Care Bakery Worker Conveyor Line Name Role Phone Patsy Waters MD Primary [...] drink = 0.6 oz pur e alcohol) Comments Unknown Sex and Gender Information Value Date Recorded Sex Assigned at Not on file Legal Sex Female 1:51 AM EST Gender Identity Not on file Sexual Orientation Not on file Obstetrics History Plan of Treatment Upcoming Encounters Date Type Department Care Team (Late st Contact Info) Description 12/20/2024 1:40 PM EDT Appointment Radiology Department [address] [phone] Health Maintenance Due Date Last Done Comments DTaP,Tdap,and Td Vaccines (1 - Tdap) 1987 Hepatitis B Vaccines (1 of 3 - 19+ 3-dose series) 1987 Pneumococcal Vaccine: 50+ Years (1 of 2 - PCV) 1987 Pneumococcal Vaccine: Pediatrics (0 to 5 Years) and At-Risk Patients (6 to 64 Years) (1 of 2 - PCV) 1987 Cervical Cancer Screening: Pap Smear 1989 [...] patient's age to complete this topic Meningococcal B Vacine Aged Out No lo nger eligible based on patient's age to complete [...] Low (<15%) Cheyenne Wray MD IMG XR PROCEDURES Final Result from Last 3 Months or Most Recently Relevant to Health Maintenance Care Teams Bakery Worker Conveyor Line Relationship Specialty Start Date End Date Patsy Waters MD PCP - General Internal Medicine 02/28/18
--- OUTSIDE RECORDS SUMMARY | 2024-10-03 19:23 | XMS_ITS | Encounter Summary ---
Author Organization [employer] Address [address] [facility] 7t [place] [address] Care Team Providers Care Grinder Set Up Operator External Name Role Phone Cheyenne Frausto MD Primary Care Pro vider Reason for Visit * Reason Comments Med Refill Encounter Details Date Type Department Care Team ([facility] st Contact Info) Description 01/19/2024 Refill [facility] MEDICINE 230 [place], [place] [phone] Karthikeyan Walker MD 230 [place] [address] Primary hypertension Social History Tobacco Use Types [...] documented as of this encounter Care Teams Grinder Set Up Operator External Relationship Specialty Start Date End Date Cheyenne Frausto MD [address] [place] [address] PCP - General Internal Medicine 03/30/23 documented as of this encounter
--- OUTSIDE RECORDS SUMMARY | 2024-10-03 19:23 | XMS_ITS | Clinical Summary ---
Author Organization [employer] Address [address] [facility] 7[address] [place] [address] Care Team Providers Care School Supervisor Name Role Phone Cheyenne Frausto MD Primary [...] in the morning. 90 tablet 4 Active ciclopirox (Penlac) 8 % solutionIndicati ons:Onychomycosi s Apply topically at bedtime. 6 mL 1 5 Active Active Problems Problem Noted Date Diagnosed Date UTI symptoms 10/03/2024 Assessment & Plan (10/03/2024 5:14 PM EST): Advised patient to drink plenty of water and do not hold the urine I ordered for patient UA and culture patient will be contacted with results Encounter for preventive care 10/03/2024 Assessment & Plan (10/03/2024 5:15 PM EST): See HPI Pancreatic cyst 05/02/2024 Dysphagia 12/10/2023 Ear itching [...] Backache 10/05/2011 04/28/2023 Depressive disorder 11/11/2010 04/28/20 Anxiety state 10/20/2010 04/28/2023 Palpitations 02/28/2010 04/28/2023 Encounters Date Type Department Care Team Description 10/03/2024 2:45 PM EST Office Visit [facility] [place] [address] Cheyenne Dnois MD UTI symptoms (Primary Dx); Ear itching; Onychomycosis; Encounter for preventive care 10/03/2024 1:30 PM EST Office Visit [address] [place] [address] Leslye Mora MD Anxiety and depression (Primary Dx) 10/03/2024 Travel 09/28/2024 10:00 AM EST Office Visit [address] [address] Didi Mejia MD Anxiety and depression (Primary Dx) 09/28/[address] [address] Cheyenne Frausto MD Chart Prep 09/28/2024 Travel 09/19/2024 Patient Outreach [address] [address] Cheyenne Frausto MD Pre-visit Planning (SDOH screening negative and tobacco screeningpositive) 08/08/[address] [address] Cheyenne Frausto MD 07/27/2024 Orders Only [address] [address] Provider, MD Ted from Last 3 Months Immunizations Name Administration [...] 44.2 Started: 1980 Passive Smoke Exposure: Current Tobacco [...] Sign Reading Time Taken Comments Blood Pressure 138/71 10/03/2024 2:56 PM EST Pulse 55 10/03/2024 2:56 PM EST Temperature 35.8 ??C (96.5 ??F) 10/03/2024 2:56 PM ES T Respiratory Rate 18 10/03/2024 2:56 PM EST Oxygen Saturation 99% 05/02/2024 10:56 AM EDT Inhaled Oxygen Concentration - - Weight 74.9 kg (165 lb 3.2 oz) 10/03/2024 2:56 P M EST Height 154.9 cm (5' 1 ) 10/03/2024 2:56 PM EST Body Mass Index 31.21 10/03/2024 2:56 PM EST Plan of Treatment Health Maintenance Due Date Last Done Comments CT Colonography 1968 FIT DNA/Cologuard 1968 FIT 1968 FOBT 1968 Sigmoidoscopy 1968 Hepatitis A Vaccines (1 of 2 - Risk 2-dose series) 1987 HPV/Cotest 1998 Zoster Vaccines (2 of 2) 06/07/2020 04/12/2020 Hepatitis B Vaccines (2 of 3 - 19+ 3-dose series) 07/26/2023 06/28/2023 COVID-19 Vaccine ( - 2023- season) 2024 12/11/2020, 11/21/2020 Diabetes: Hemoglobin A1C 07/17/2025 024, 01/25/2024, 04/30/2023, Additional history exists Lung Cancer Screening 08/11/2025 08/11/2024 SDOH Screening 09/19/2025 09/19/2024 Cervical Cancer Screening 10/01/2025 Pap Smear 10/01/2025 10/01/2022 Alcohol/Substance Use Screening 10/03/2025 10/03/2024 Depression Screening 10/03/2025 10/03/2024, 10/03/19 Tobacco Screening 10/03/2025 10/03/2024 Mammogram 12/14/2025 12/15/2023 Colonoscopy 03/08/2027 03/08/2024 Colorectal [...] 23 6:05 PM EST) No Lara Morgan, Irina Procedures Procedure Name Priority Date/Time Associated Diagnosis [...] EST Narrative 08/14/2024 7:31 AM EST ? [facility] ?[address] ?[place] [id number] ? [address] Scan Report ? Signed ? Patient: Cheyenne Kinney ?MR#: [id number] ?? 0 ? : 1970 ?Acct:[id number] ? Age/Sex: 53 / F ?ADM Date: 08/11/24 ? Loc: HO.CT ? Attending Dr: Lori Guthrie PA-C ? Ordering Physician: Lori Guthrie PA-C ?? Date of Service: 08/11/24 ?? Procedure(s): CT lung screening ?? Accession Number(s): [id number] ? cc: Lori Guthrie PA-C; Cheyenne Frausto MD ? Report Number: ?? [id number]: Total DLP = ?? 56.00 mGy-cm ?? [...] DD/ 1012 ? TD/TT: 08/11/24 1103 ? Rand Cementer: ? Procedure Note Isaac, Image - 08/14/[address] [place] [id number] [address] Scan Report Signed Patient: Asuncion Kinney#: [id number] 0 : 1970Acct:[id number] Age/Sex: 53 / FADM Date: 08/11/24 Loc: .CT Attending Dr: Lori Guthrie PA-C Ordering Physician: Lori Guthrie PA-C Date of Service: 08/11/24 Procedure(s): CT lung screening Accession Number(s): [id number] cc: Lori Guthrie PA-C; Cheyenne Frausto MD Report Number: [id number]: Total DLP = 56.00 mGy-cm EXAMINATION: CT [...] Mauricio Garibay MD 08/14/2024 07:28 AM EST Dictated By: Mauricio Garibay MD Signed By: <Electronically signed by Mauricio Garibay MD in OV> 08/14/24 0728 DD/ 1012 TD/TT: 08/11/24 1103 Rand Cementer: [facility] External Provider IMG CT PROCEDURES Edited Result - Final * Syphilis Screen (07/17/2024 8:29 AM EST) Syphilis Screen Nonreactive Nonreactive [facility] Blood 07/17/2024 8:29 AM EST 07/17/2024 11:50 AM EST Cheyenne Wray MD LAB BLOOD ORDERAB LES Final Result [facility] [address] [place] [phone] * Vitamin D, 25-Hydroxy, Total, Immunoassay (07/17/2024 8:29 AM EST) Vitamin D 25-OH Total 35.2 >30 ng/mL [facility] Comment:Health Based Referen ce Values*< 20 ng/mL Zaijjjpue58-31 ng/mL Insufficient> 30 ng/mL Sufficient*Leroy MCCAULEY. N [...] MD LAB BLOOD ORDERAB LES Final Result [facility] [address] [place] [phone] * Vitamin B12 (Cobalamin) and Folate Panel, Serum (07/17/2024 8:29 AM EST) Vitamin B12 490 200 - 900 pg/mL [facility] Comment:NORMAL 200-900 PG/ML INDETERMINATE 160-199 PG/ML DEFICIENT < 160 PG/ML Folate 7.3 > or = 4.0 ng/mL [facility] Comment:Reference Values:> o r = 4.0 ng/mL< 4.0 ng/mL suggests folate deficiency Methotrexate, aminopterin and folinic acid(leucovorin) are chemotherapeutic agents whose molecularstructures are similar to folate; therefore, the Architectfolate assay cannot be used for patients using these drugs. Blood 07/17/2024 8:29 AM EST 07/17/2024 11:38 AM EST Cheyenne Wray MD LAB BLOOD ORDERAB LES Final Result [facility] [address] [place] [phone] [phone] * TSH with Reflex to Free T4 (07/17/2024 8:29 AM EST) TSH reflex Free T4 1.87 0.32 - 4.0 uIU/mL [facility] Blood 07/17/2024 8:29 AM EST 07/17/2024 11:38 AM EST us Cheyenne Wray MD LAB BLOOD ORDERAB LES Final Result Performing Organization Address [facility] de Phone Number [facility] [address] [place] [phone] * Albumin, Random Urine W/Creatinine (07/17/2024 8:29 AM EST) Creatinine, Urine 145.37 mg/dL [facility] Microalbumin Urine 19.0 mg/L [facility] Microalbum Creatinine Ratio Ur 13.0 <30 ug/mg cr [facility] Comment:Albumin/Creatinine R atio Reference Ranges: Normal: < 30 ug/mg creatinine Microalbuminuria: 30 - 300 ug/mg creatinineClinical Albuminuria: > 300 ug/mg creatinine Urine (Urine, Random) 07/17/2024 8:29 AM EST 07/17/2024 11:21 AM EST us Cheyenne Wray MD LAB URINE ORDERAB LES Final Result Performing Organization Address [facility] Co de Phone Number [facility] [address] [place] [phone] * Hepatitis C Antibody with Reflex to HCV, RNA, Quantitative, Real-Time PCR (07/17/2024 8:29 AM EST) Hepatitis C Antibody Nonreactive Nonreactive [facility] Comment:Antibodies to HCV no t detected; does not exclude early acuteHCV infection. Blood Venous blood specimen / Unknown 07/17/2024 8:29 AM EST 07/17/2024 11:38 AM EST Cheyenne Wray MD LAB BLOOD ORDERAB LES Final Result [facility] [address] [place] [phone] * Chlamydia/N. Gonorrhoeae RNA, TMA, Urogenitial (07/17/2024 8:29 AM EST) CT PCR NOT DETECTED Not Detect. [facility] Comment:A not detected test result [...] psychologicalconsequences. NG PCR NOT DETECTED Not Detect. [facility] Comment:A not detected test result [...] AM EST 07/17/2024 11:21 AM EST Narrative [facility] - 07/17/2024 1:34 PM EST Urine hCeyenne Wray MD LAB MICROBIOLOGY - GENERAL ORDERABLES Final Result Performing Organization Address [facility]/ZIP Co de Phone Number [facility] [address] [place] [phone] * Hepatitis B surface antigen, EIA (07/17/2024 8:29 AM EST) Hepatitis B Surface Ag Negative Negative [facility] Blood Venous blood specimen / Unknown 07/17/2024 8:29 AM EST 07/17/2024 11:38 AM EST us Cheyenne Wray MD LAB BLOOD ORDERAB LES Final Result Performing Organization Address [facility] Co de Phone Number [facility] [address] [place] [phone] * Hepatitis B Core Antibody, Total (07/17/2024 8:29 AM EST) Pathologist [facility] Hepatitis B Core Antibody Nonreactive Nonreactive [facility] Blood Venous blood specimen / Unknown 07/17/2024 8:29 AM EST 07/17/2024 11:38 AM EST us Cheyenne Wray MD LAB BLOOD ORDERAB LES Final Result Performing Organization Address [facility] Co de Phone Number [facility] [address] [place] [phone] * HIV-1/2 Antigen and Antibodies, Fourth Generation, with Reflexes (07/17/2024 8:29 AM EST) HIV AB/AG Nonreactive Nonreactive [facility] Comment:HIV-1 p24 Ag and/or HIV-1/HIV-2 Ab not detected.A test result that is nonreactive does not exclude thepossibility of exposure to or infection with HIV-1 and/orHIV-2. Nonreactive results in this assay for individualswith prior exposure to HIV-1 and/or HIV-2 may be due toantigen and antibody levels that are below the limit ofdetection of this assay.The [employer] HIV Ag/Ab Combo assay result andsupplemental assay results should be interpreted inconjunction with the patient's clinical presentation,history and other laboratory results. If the results areinconsistent with clinical evidence, additional testing issuggested to confirm the result. Blood Venous blood specimen / Unknown 07/17/2024 8:29 AM EST 07/17/2024 11:38 AM EST Cheyenne Wray MD LAB BLOOD ORDERAB LES Final Result Performing Organization Address [facility]/ZIP Co de Phone Number [facility] [address] [place] [phone] * Hepatitis B Surface Antibody, Qualitative (07/17/2024 8:29 AM EST) ~Hepatitis B Surface Antibody NONREACTIVE Nonreactive [facility] Comment:Nonreactive: < 8.00 mIU/mL Blood Venous blood specimen / Unknown 07/17/2024 8:29 AM EST 07/17/2024 11:38 AM EST us Cheyenne Wray MD LAB BLOOD ORDERAB LES Final Result Performing Organization Address City/[facility]/ZIP Co de Phone Number [facility] [address] [place] [phone] * CBC (07/17/2024 8:29 AM EST) White Blood Count 7.2 4.8 - 10.8 X10*3/uL [facility] Red Blood Count 4.55 4.20 - 5.50 X10*6/uL [facility] Hemoglobin 14.0 12.0 - 16.0 g/dl [facility] Hematocrit 42.0 37.0 - 47.0 % [facility] Mean Corpuscular Volume 92.3 80.0 - 98.0 fL [facility] Mean Corpuscular Hemoglobin 30.8 27.0 - 33.0 pg [facility] Mean Corpuscular HGB Conc 33.3 31.0 - 35.0 g/dl [facility] Red Cell Distribution Width 13.2 11.0 - 16.0 % [facility] Platelet Count 205 160 - 400 X10*3/uL [facility] Mean Platelet Volume 11.1 9.4 - 12.3 fL [facility] NRBC Pct Auto 0.0 0.0 - 0.2 /100WBC [facility] NRBC Abs Auto 0.000 0.0 - 0.012 X10*3/uL [facility] Blood Venous blood specimen / Unknown 07/17/2024 8:29 AM EST 07/17/2024 11:39 AM EST us Cheyenne Wray MD LAB BLOOD ORDERAB LES Final Result [facility] [address] [place] [phone] * Hemoglobin A1c (07/17/2024 8:29 AM EST) Hemoglobin A1c 5.8 <6.0 % [facility] Comment:Hemoglobin A1C Refer ence Range Adults: 4.8 - 6.0 % Non diabetic: < 6.0 % Goal: < 7.0 %Additional Action Suggested: > 8.0 %Note: Hemoglobin A1c results are invalid for patients with abnormal amounts of HbF. Blood transfusions may impact the HbA1c concentration in the patient sample. Estimated Average Glucose 120 mg/dL [facility] Comment:eAG = Estimated ave rage glucose which is %A1C expressed asaverage glucose, using the formula of the O4Z-OaomokjCztuyfp Glucose study (ADAG), Diabetes Care, Vol.31,#8,2007 Blood Venous blood specimen / Unknown 07/17/2024 8:29 AM EST 07/17/2024 11:39 AM EST us Cheyenne Wray MD LAB BLOOD ORDERAB LES Final Result Performing Organization Address [facility]/ZIP Co de Phone Number [facility] [address] [place] [phone] * (ABNORMAL) Lipid Panel, Standard (07/17/2024 8:29 AM EST) Triglycerides 119 <150 mg/dL [facility] Comment:Desirable Triglyceri de: less than 150 mg/dLBorderline High Triglyceride 150-199 mg/dLHigh Triglyceride: 200-499 mg/dLVery High Triglyceride: greater than or equal to 5OO mg/dL Cholesterol 187 <200 mg/dL [facility] Comment:Desirable Cholestero l: less than 200 mg/dLBorderline High Cholesterol: 200-239 mg/dLHigh Cholesterol: greater than 239 mg/dL LDL Cholesterol Calculated 109(H) <100 mg/dL [facility] Comment:Desirable LDL: less than 100 mg/dLNear Optimal/Above Optimal LDL: 110- 129 mg/dLBorderline High LDL: 130-159 mg/dLHigh LDL: 160-189 mg/dLVery High LDL: greater than or equal to 190 mg/dL HDL Cholesterol 55 >40 mg/dL [facility] Comment:Desirable HDL: great er than 40 mg/dL Note: This HDL assay may give artificially low results in patients with liver disease. Blood Venous blood specimen / Unknown 07/17/2024 8:29 AM EST 07/17/2024 11:38 AM EST us Cheyenne Wray MD LAB BLOOD ORDERAB LES Final Result Performing Organization Address City/[facility]/ZIP Co de Phone Number [facility] [address] [place] [phone] * (ABNORMAL) Comprehensive Metabolic Panel (07/17/2024 8:29 AM EST) Sodium 142 135 - 145 mmol/L [facility] Potassium 4.0 3.3 - 5.1 mmol/L [facility] Chloride 110(H) 96 - 108 mmol/L [facility] Carbon Dioxide 28 22 - 29 mmol/L [facility] Anion Gap 8(L) 12 - 20 [facility] Urea Nitrogen (BUN) 18(H) 9 - 16 mg/dL [facility] Creatinine, Serum 0.64 0.5 - 1.4 mg/dL [facility] Estimated Glomerular Filt Rate >60 [facility] Comment:Chronic Kidney Disea se: Estimated GFR < 60 mL/min/1.16y1Dmbyfs Kidney Disease: Estimated GFR < 15 mL/min/1.73m2 Glucose 109 60 - 115 mg/dL [facility] Calcium 8.7 8.4 - 10.2 mg/dL [facility] Bilirubin, Total 0.7 0.0 - 1.0 mg/dL [facility] Aspartate Amino Transferase 19 5 - 31 U/L [facility] Alanine Aminotransferase 22 0 - 31 U/L [facility] Total Protein 6.6 6.5 - 8.0 g/dL [facility] Albumin Level 3.9 3.5 - 5.0 g/dL [facility] Alkaline Phosphatase 97 39 - 117 U/L [facility] Blood Venous blood specimen / Unknown 07/17/2024 8:29 AM EST 07/17/2024 11:38 AM EST us Cheyenne Wray MD LAB BLOOD ORDERAB LES Final Result [facility] [address] [place] [phone] * Hm Colonoscopy (03/08/2024 12:22 PM EDT) us Historical Provider HEALTH MAINTENANCE Final Result * BI Mammogram Screening Tomosynthesis Bilateral (12/15/2023) Anatomical Region Laterality Modality Breast Bilateral Mammography us Cheyenne Wray MD IMG BI PROCEDURES Final Result * Pap Smear (10/01/2022) Pap smear perform Historical Provider HEALTH MAINTENANCE Final Result from Last 3 Months or Most Recently Relevant to Health Maintenance Insurance [facility] C3 Member Subscriber Plan / Payer (Ef fective 2022-Present) Name:Cheyenne Kinney I Relation to Subscriber:Self Name:Cheyenne Kinney I Payer ID:Not on file Group ID:Not on file Type:Medicaid Address: [address] [employer] PART[employer] Care Teams School Supervisor Relationship Specialty Start Date End Date Cheyenne Frausto MD [address] [place] [phone] PCP - General Internal Medicine 03/30/23
--- OUTSIDE RECORDS SUMMARY | 2024-10-03 19:23 | XMS_ITS | Encounter Summary ---
Author Organization [employer] Address [address] [facility] [address] [place] [address] Care Team Providers Care Assembler Trim Name Role Phone Cheyenne Frausto MD Primary Care Pro vider Encounter Details Date Type Department Care Team (Latest Contact Info) Description 10/03/2024 Travel Social History Tobacco Use Types Packs/Day [...] documented as of this encounter Care Teams Assembler Trim Relationship Specialty Start Date End Date Cheyenne Frausto MD [address] [place] [phone] PCP - General Internal Medicine 03/30/23 documented as of this encounter
--- OUTSIDE RECORDS SUMMARY | 2024-10-03 19:23 | XMS_ITS | Encounter Summary ---
Author Organization [employer] Address [address] [place] [address] Care Team Providers Care Fingerprint Clerk Name Role Phone Cheyenne Frausto MD Primary Care Pro vider Reason for Visit * Reason Onset Date Comments Chart Prep 09/28/2024 Encounter Details Date Type Department Care Team ([facility] st Contact Info) Description 09/28/2024 Telephone [facility] [address] [place], [place] [phone] Cheyenne Frausto MD [address] [place] [address] Chart Prep Social History Tobacco Use Types Packs/Day Years [...] encounter Miscellaneous Notes * Telephone Encounter - Jake Gale [place] - 09/28/2024 1:10 PM EST Chart Prep Labs: not applicable Images: done Vaccines due: yes Referrals: complete Screenings: up to date Overdue care gaps: Sbirt, PHQ-9, EUGENIE-7 documented in this encounter Plan of Treatment Not on file documented as of this encounter Goals Goal Patient Goal Type Associated Problems Recent Progress Patient-Stated? Author Smoking cessation General Tobacco user On track(06/28/20 6:05 PM EST) No MorganLara paiz, PharmD documented as of this encounter Visit Diagnoses Not on filedocumented in this encounter Additional Health Concerns Assessment Noted Time PHQ-9 Depression Total Score: 1 05/28/20 9:15 AM EDT documented as of this encounter Care Teams Fingerprint Clerk Relationship Specialty Start Date End Date Cheyenne Frausto MD [address] [place] [phone] PCP - General Internal Medicine 03/30/23 documented as of this encounter
--- OUTSIDE RECORDS SUMMARY | 2024-10-03 19:23 | XMS_ITS | Encounter Summary ---
Author Organization [employer] Address [address] [place] [address] [place] [address] Care Team Providers Care Business School Dean Name Role Phone Cheyenne Frausto MD Primary Care Pro vider Reason for Referral * Consultation (Routine) - Pending Review Specialty Diagnoses / Procedures Referred By Kristan paulson Referred To Contact Otolaryngology Diagnoses Ear itching Cheyenne Donis MD [address] [place] [phone] Phone: tel: fax: Referral ID Status Reason Start Date Expiration Date Visits Requested Visits Authorized [id number] Pending Review Specialty Services Required 10/03/2024 10/03/2025 1 1 Encounter Details Date Type Department Care Team (Late st Contact Info) Description 10/03/2024 2:45 PM EST Office Visit [facility] MED[facility]INE [address] [place] [address] [phone] Cheyenne Donis MD [address] [place] [address] [phone] UTI symptoms (Primary Dx); Ear itching; Onychomycosis; Encounter for preventive care Social History Tobacco Use Types Packs/Day Years [...] AM EDT documented as of this encounter Last Filed Vital Signs Vital Sign Reading Time Taken Comments Blood Pressure 138/71 10/03/2024 2:56 PM EST Pulse 55 10/03/2024 2:56 PM EST Temperature 35.8 ??C (96.5 ??F) 10/03/2024 2:56 PM ES T Respiratory Rate 18 10/03/2024 2:56 PM EST Oxygen Saturation - - Inhaled Oxygen Concentration - - Weight 74.9 kg (165 lb 3.2 oz) 10/03/2024 2:56 P M EST Height 154.9 cm (5' 1 ) 10/03/2024 2:56 PM EST Body Mass Index 31.21 10/03/2024 2:56 PM EST documented in this encounter Progress Notes * Cheyenne Goldman MD - 10/03/2024 2:45 PM EST SUBJECTIVE: Cheyenne Kinney is a 54 y.o. year old female who presents for Physical . 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 Diet:regular Exercise:sedentary Pap Smear:due on 10/04/2025 Colonoscopy: due 03/08/2027 Mammogram Lung cancer screening: patient is being follow closely by pulmonology for pulmonary nodules Hospitalizations/Surgeries: cholecystectomy , hysterectomy, 3, tubal ligation Eye Care:up to date Dental Care:up to date PMHx:see below Immunizations: Reviewed Acute Concerns: UTI symptoms: urinary frequency, urgency, urine mal odor Patient complain of excessive ear itchiness, she would like to be referred to program and research coordinator Patient complaining of toenail thickening and darkish discoloration Social History Social History Narrative Not on file Patient Active Problem List Diagnosis Chronic low back pain Polymyalgia rheumatica (CMS/HCC) Hypertension Hypercholesterolemia Obesity (BMI 30-39.9) Tobacco user Penicillin allergy DORANTES (dyspnea on exertion) Urinary incontinence Onychomycosis Anxiety and depression Alcohol abuse Health care maintenance Prediabetes Dysphagia Ear itching Pancreatic cyst UTI symptoms Encounter for preventive care Family History Problem Relation Name Age of Onset Uterine cancer Mother Other (DM2.HTN) Mother Other (DM2.HTN) Brother Other (DM2) Son Review of Systems Constitutional: Negative. HENT: Negative. Respiratory: Negative. Cardiovascular: Negative. Genitourinary: Positive for enuresis, frequency and urgency. Negative for decreased urine volume, difficulty urinating, dyspareunia, dysuria, flank pain, genital sores, hematuria, menstrual problem, pelvic pain, vaginal bleeding, vaginal discharge and vaginal pain. OBJECTIVE: Vitals: 10/03/24 1456 BP: 138/71 BP Location: Left arm Patient Position: Sitting BP Cuff Size: Adult Pulse: 55 Resp: 18 Temp: 96.5 ??F (35.8 ??C) TempSrc: Oral Weight: 165 lb 3.2 oz (74.9 kg) Height: 5' 1 (1.549 m) Physical Exam Constitutional: Appearance: Normal appearance. Cardiovascular: Rate and Rhythm: Normal rate and regular rhythm. Pulmonary: Effort: Pulmonary effort is normal. Breath sounds: Normal breath sounds. Abdominal: General: Abdomen is flat. Palpations: Abdomen is soft. Tenderness: There is no right CVA tenderness or left CVA tenderness. Musculoskeletal: Right lower leg: No edema. Left lower leg: No edema. Neurological: Mental Status: She is alert. Follow Up: No follow-ups on file. Current Outpatient Medications on File Prior to Visit Medication Sig Dispense Refill amLODIPine (Norvasc) 5 MG tablet TAKE 1 TABLET BY MOUTH EVERY DAY 90 tablet 0 atorvastatin (Lipitor) 10 MG tablet Take 1 tablet (10 mg) by mouth in the morning. 90 tablet 0 fexofenadine (April) 180 MG tablet Take 1 tablet (180 mg) by mouth if needed each day (Allergies). 90 tablet 0 lisinopril 30 MG tablet TAKE 1 TABLET BY MOUTH EVERY DAY (Patient not taking: Reported on 05/02/2024) 90 tablet 0 oxybutynin XL (Ditropan-XL) 10 MG 24 hr tablet 0 Refills, Maintenance, 03/08/23 15:48:00 EDT, Partial fill upon patient request if the prescription is for a schedule II opioid drug. No current facility-administered medications on file prior to visit. Problem List Items Addressed This Visit UTI symptoms - Primary Advised patient to drink plenty of water and do not hold the urine I ordered for patient UA and culture patient will be contacted with results Relevant Orders Urinalysis with reflex microscopic Culture, Urine, Routine Ear itching Relevant Orders Referral to ENT Onychomycosis Relevant Medications ciclopirox (Penlac) 8 % solution Encounter for preventive care See HPI documented in this encounter Miscellaneous Notes * Assessment & Plan Note - Cheyenne Goldman MD - 10/03/2024 5:15 PM EST Associated Problem(s): Encounter for preventive care See HPI * Assessment & Plan Note - Cheyenne Goldman MD - 10/03/2024 5:14 PM EST Associated Problem(s): UTI symptoms Advised patient to drink plenty of water and do not hold the urine I ordered for patient UA and culture patient will be contacted with results documented in this encounter Plan of Treatment Scheduled Orders Name Type Priority Associated Diagnoses Orde r Schedule Urinalysis with reflex microscopic Lab Routine UTI symptoms Expected: 10/03/2024, Expires: 10/03/2025 Culture, Urine, Routine Microbiology Routine UTI symptoms Expected: 10/03/2024 (Approximate), Expires: 10/03/2025 Scheduled Referrals Name Type Priority Associated Diagnoses Orde r Schedule Referral to ENT Outpatient Referral Routine Ear itching Expected: 10/03/2024 (Approximate), Expires: 10/03/2025 documented as of this encounter Goals Goal Patient Goal Type Associated Problems Recent Progress Patient-Stated? Author Smoking cessation General Tobacco user On track(06/28/20 6:05 PM EST) No Lara Morgan, LexaD documented as of this encounter Visit Diagnoses Diagnosis UTI symptoms- Primary Ear itching Onychomycosis Dermatophytosis of nail Encounter for preventive care documented in this encounter Additional Health Concerns Assessment Noted Time PHQ-9 Depression Total Score: 0 10/03/19 3:32 PM EST documented as of this encounter Care Teams Business School Dean Relationship Specialty Start Date End Date Cheyenne Frausto MD [address] [place] [phone] PCP - General Internal Medicine 03/30/23 documented as of this encounter
== END 2024-10-03 15:40 | disposition home or self-care (01) ==
LOC: HO.HHCL 15:39
PROVIDERS: Visit Provider Internal Medicine
DX: Z13.89 Encounter for screening for other disorder (principal)

== ENCOUNTER 2024-10-12 08:58 | Outpatient (REF) | payer MEDICAID, SELFPAY ==
--- OUTSIDE RECORDS SUMMARY | 2024-10-12 09:52 | XMS_ITS | Clinical Summary ---
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
--- OUTSIDE RECORDS SUMMARY | 2024-10-12 09:52 | XMS_ITS | Encounter Summary ---
Author Organization [facility] Address [facility] [place] [address] Care Team Providers Care Ship Scraper Name Role Phone Patsy Waters MD Primary Care Provider Unavail able Encounter Details Date Type Department Care Team Description 03/13/2020 Release of Information Medical Records [address] [place] [id number] Abstract, Provider Social History Tobacco Use Types Packs/Day Years Used Date Smoking Tobacco: Every Day Cigarettes 1 20 Smokeless Tobacco: Never Alcohol Use Standard Drinks/Week Comments Yes 2 (1 standard drink = 0.6 oz pur e alcohol) Rarely Sex Assigned at Date Recorded Not on file Job Start Date Occupation Industry Not on file Not on file Not on file documented as of this encounter Plan of Treatment Not on file documented as of this encounter Visit Diagnoses Not on filedocumented in this encounter Care Teams Ship Scraper Relationship Specialty Start Date End Date Patsy Waters MD PCP - General Internal Medicine 02/28/18 documented as of this encounter
--- OUTSIDE RECORDS SUMMARY | 2024-10-12 09:52 | XMS_ITS | Encounter Summary ---
Author Organization [employer] Address [address] [place] [address] Care Team Providers Care Cab Driver Name Role Phone Cheyenne Frausto MD Primary Care Pro vider Reason for Visit * Reason Onset Date Comments Reschedule 11/03/2023 Encounter Details Date Type Department Care Team ([facility] st Contact Info) Description 11/03/2023 Telephone [facility] MEDICINE [address] [place], [place] [phone] Cheyenne Frausto MD [address] [place], [place] [phone] Reschedule Social History Tobacco Use Types Packs/Day [...] documented as of this encounter Care Teams Cab Driver Relationship Specialty Start Date End Date Cheyenne Frausto MD [address] [place] [address] [phone] PCP - General Internal Medicine 03/30/23 documented as of this encounter
--- OUTSIDE RECORDS SUMMARY | 2024-10-12 09:52 | XMS_ITS | Encounter Summary ---
Author Organization [facility] [facility] Address [address] [place] [address] Care Team Providers Care Supervisor Hairspring Fabrication Name Role Phone Patsy Waters MD Primary Care Provider Unavail able Encounter Details Date Type Department Care Team Description 01/18/2019 Telephone Gastroenterology - [address] [place] [address] Makayla Freitas MD [address] [place] [phone] Social History Tobacco Use Types Packs/Day Years Used Date Smoking Tobacco: Every Day Cigarettes 1 20 Smokeless Tobacco: Never Alcohol Use Standard Drinks/Week Comments Yes 2 (1 standard drink = 0.6 oz pur e alcohol) Rarely Sex Assigned at Date Recorded Not on file Job Start Date Occupation Industry Not on file Not on file Not on file documented as of this encounter Miscellaneous Notes * Telephone Encounter - Lori Aranda - 01/18/2019 8:24 AM EDT All attempts to reach patient to schedule screening colonoscopy have been exhausted. documented in this encounter Plan of Treatment Not on file documented as of this encounter Visit Diagnoses Not on filedocumented in this encounter Care Teams Supervisor Hairspring Fabrication Relationship Specialty Start Date End Date Patsy Waters MD PCP - General Internal Medicine 02/28/18 documented as of this encounter
--- OUTSIDE RECORDS SUMMARY | 2024-10-12 09:52 | XMS_ITS | Encounter Summary ---
Author Organization [employer] [facility] Address [address] [place] [address] Care Team Providers Care Hyperbaric Welder Diver Name Role Phone Patsy Waters MD Primary Care Provider Unavail able Reason for Visit * Reason Onset Date Comments Medication 10/03/2019 Colonoscopy Encounter Details Date Type Department Care Team Description 10/03/2019 Refill Gastroenterology - [address] [place] [address] Makayla Freitas MD [address] [place] [phone] Medication (Colonoscopy) Social History Tobacco Use Types Packs/Day Years [...] on filedocumented in this encounter Care Teams Hyperbaric Welder Diver Relationship Specialty Start Date End Date Patsy Waters MD PCP - General Internal Medicine 02/28/18 documented as of this encounter
--- OUTSIDE RECORDS SUMMARY | 2024-10-12 09:52 | XMS_ITS | Encounter Summary ---
Author Organization [employer] Address [address] [facility] 7t [place] [address] Care Team Providers Care Child Day Care Provider Name Role Phone Cheyenne Frausto MD Primary Care Pro vider Reason for Visit * Reason Comments Med Refill Encounter Details Date Type Department Care Team ([facility] st Contact Info) Description 04/10/2024 Refill [facility] [address] [place] [address] [phone] Name, MD Jamshid [address] [place] [address] Social History Tobacco Use Types Packs/Day Years [...] documented as of this encounter Care Teams Child Day Care Provider Relationship Specialty Start Date End Date Cheyenne Frausto MD [address] [place] [phone] PCP - General Internal Medicine 03/30/23 documented as of this encounter
--- OUTSIDE RECORDS SUMMARY | 2024-10-12 09:52 | XMS_ITS | Encounter Summary ---
Author Organization [employer] Address [address] [facility] 7t [place] [address] Care Team Providers Care Admissions Manager Rn Name Role Phone Cheyenne Frausto MD Primary Care Pro vider Reason for Visit * Reason Comments Med Refill Encounter Details Date Type Department Care Team ([facility] st Contact Info) Description 01/19/2024 Refill [facility] MEDICINE [address] [place], [place] [phone] Karthikeyan Walker MD [address] [place] [address] Primary hypertension Social History Tobacco Use Types [...] documented as of this encounter Care Teams Admissions Manager Rn Relationship Specialty Start Date End Date Cheyenne Frausto MD [address] [place] [phone] PCP - General Internal Medicine 03/30/23 documented as of this encounter
--- OUTSIDE RECORDS SUMMARY | 2024-10-12 09:52 | XMS_ITS | Clinical Summary ---
Author Organization [facility] Address [address] [place] [phone] Care Team Providers Care Manager Landscape Name Role Phone Patsy Waters MD Primary [...] 12/20/2024 1:40 PM EDT Appointment Radiology Department [address] [phone] Health Maintenance Due Date Last Done Comments [...] Recently Relevant to Health Maintenance Care Teams Manager Landscape Relationship Specialty Start Date End Date Patsy Waters MD PCP - General Internal Medicine 02/28/18
--- OUTSIDE RECORDS SUMMARY | 2024-10-12 09:53 | XMS_ITS | Encounter Summary ---
Author Organization [employer] Address [address] [facility] 7t [place] [address] Care Team Providers Care Plastic Sheeting Cutter Name Role Phone Cheyenne Frausto MD Primary [...] documented as of this encounter Care Teams Plastic Sheeting Cutter Relationship Specialty Start Date End Date Cheyenne Frausto MD [address] [place] [address] PCP - General Internal Medicine 03/30/23 documented as of this encounter
--- OUTSIDE RECORDS SUMMARY | 2024-10-12 09:53 | XMS_ITS | Encounter Summary ---
Author Organization [employer] Address [address] [facility] 7t [place] [address] Care Team Providers Care Medical Assistant Dermatology Name Role Phone Cheyenne Frausto MD Primary Care Pro vider Encounter Details Date Type Department Care Team (Late st Contact Info) Description 07/27/2024 Orders Only [facility] MEDICINE [address] [place] [address] Provider, MD Ted Social History Tobacco Use [...] EST Narrative 08/14/2024 7:31 AM EST ? [facility] ?[address] ?[place] [address] ? CT Scan Report ? Signed ? Patient: Kinney,Cheyenne ?MR#: [id number] ?? 0 ? : 1970 ?Acct:[id number] ? Age/Sex: 53 / F ?ADM Date: 01/03/25 ? Loc: HO.CT ? Attending Dr: Lori Guthrie PA-C ? Ordering Physician: Lori Guthrie PA-C ?? Date of Service: 08/11/24 ?? Procedure(s): CT lung screening ?? Accession Number(s): [id number] ? cc: Lori Guthrie PA-C; Cheyenne Frausto MD ? Report Number: ?? [id number]: Total DLP = ?? 56.00 mGy-cm ?? [...] //25 1012 ? TD/TT: 08/11/ 1103 ? Technician Helper Instrument: ? Procedure Note Donotuseinterpreter, Image - 08/14/[address] [address] [address] Scan Report Signed Patient: Asuncion Kinney#: [id number] 0 : 1970Acct:[id number] Age/Sex: 53 / FADM Date: 08/11/24 Loc: HO.CT Attending Dr: Lori Guthrie PA-C Ordering Physician: Lori Guthrie PA-C Date of Service: 08/11/24 Procedure(s): CT lung screening Accession Number(s): [id number] cc: Lori Guthrie PA-C; Cheyenne Frausto MD Report Number: [id number]: Total DLP = 56.00 mGy-cm EXAMINATION: CT [...] by: Mauricio Garibay MD 08/14/2024 07:28 AM [facility] Dictated By: Mauricio Garibay MD Signed By: <Electronically signed by Mauriico Garibay MD in OV> 08/14/24 0728 DD/ 1012 TD/TT: 08/11/24 1103 Technician Helper Instrument: [facility] External Provider IMG CT PROCEDURES Edited Result - Final * Hm Colonoscopy (03/08/2024 12:22 PM EDT) Historical Provider HEALTH MAINTENANCE Final Result documented in this encounter Visit Diagnoses Not on filedocumented in this encounter Additional Health Concerns Assessment Noted Time PHQ-9 Depression Total Score: 1 05/28/20 23 9:15 AM EDT documented as of this encounter Care Teams Medical Assistant Dermatology Relationship Specialty Start Date End Date Cheyenne Frausto MD [address] [place] [phone] PCP - General Internal Medicine 03/30/23 documented as of this encounter
--- OUTSIDE RECORDS SUMMARY | 2024-10-12 09:53 | XMS_ITS | Encounter Summary ---
Author Organization [employer] Address [address] [place] [address] 7 [place] [address] Care Team Providers Care In Home Sales Representative Name Role Phone Cheyenne Frausto MD Primary Care Pro vider Reason for Visit * Reason Comments Acupuncture Encounter Details Date Type Department Care Team ([facility] st Contact Info) Description 10/03/2024 1:30 PM EST Office Visit [facility] MEDICINE [address] [place], [place] [phone] Leslye Mora MD [address] [place], [place] [phone] Anxiety and depression (Primary Dx) Social History [...] documented as of this encounter Care Teams In Home Sales Representative Relationship Specialty Start Date End Date Cheyenne Frausto MD [address] [place] [phone] PCP - General Internal Medicine 03/30/23 documented as of this encounter
--- OUTSIDE RECORDS SUMMARY | 2024-10-12 09:53 | XMS_ITS | Encounter Summary ---
Author Organization [employer] Address [address] [place] [address] 7 [place] [address] Care Team Providers Care Wealth Management Director Name Role Phone Cheyenne Frausto MD Primary Care Pro vider Reason for Visit * Reason Comments Acupuncture Encounter Details Date Type Department Care Team ([facility] Contact Info) Description 09/28/2024 10:00 AM EST Office Visit [facility] MEDICINE [address] [place], [place] [phone] Didi Mejia MD [address] [place] [address] Anxiety and depression (Primary Dx) Social History [...] Acupuncture. Cheyenne is here for acupuncture treatment #1. She [...] documented as of this encounter Care Teams Wealth Management Director Relationship Specialty Start Date End Date Cheyenne Frausto MD [address] [place] [phone] PCP - General Internal Medicine 03/30/23 documented as of this encounter
--- OUTSIDE RECORDS SUMMARY | 2024-10-12 09:53 | XMS_ITS | Encounter Summary ---
Author Organization [employer] Address [address] [facility] 7t [place] [address] Care Team Providers Care Animal Cruelty Investigator Name Role Phone Cheyenne Frausto MD Primary Care Pro vider Encounter Details Date Type Department Care Team (Latest Contact Info) Description 10/12/2024 Travel Social History Tobacco Use Types Packs/Day [...] documented as of this encounter Care Teams Animal Cruelty Investigator Relationship Specialty Start Date End Date Cheyenne Frausto MD [address] [place] [phone] PCP - General Internal Medicine 03/30/23 documented as of this encounter
--- OUTSIDE RECORDS SUMMARY | 2024-10-12 09:53 | XMS_ITS | Encounter Summary ---
Author Organization [employer] Address [address] [facility] 7t [place] [address] Care Team Providers Care Ladies' Locker Room Attendant Name Role Phone Cheyenne Frausto MD Primary Care Pro vider Reason for Visit * Reason Comments Acupuncture Encounter Details Date Type Department Care Team ([facility] Contact Info) Description 10/12/2024 9:15 AM EST Office Visit [facility] MEDICINE [address] [place] [address] Arrived Social History Tobacco Use Types Packs/Day Years [...] Time PHQ-9 Depression Total Score: 0 10/03/19 25 3:32 PM EST documented as of this encounter Care Teams Ladies' Locker Room Attendant Relationship Specialty Start Date End Date Cheyenne Frausto MD [address] [place] [phone] PCP - General Internal Medicine 03/30/23 documented as of this encounter
--- OUTSIDE RECORDS SUMMARY | 2024-10-12 09:53 | XMS_ITS | Clinical Summary ---
Author Organization [employer] Address [address] [facility] 7t [place] [address] Care Team Providers Care Vacuum Closing Machine Operator Name Role Phone Cheyenne Frausto [...] Encounters Date Type Department Care Team Description 10/12/2024 9:15 AM EST Office Visit [facility] [place] [address] Arrived 10/12/2024 Travel 10/03/2024 2:45 PM EST Office Visit [facility] [place] [address] Cheyenne Donis MD UTI symptoms (Primary Dx); Ear itching; Onychomycosis; Encounter for preventive care 10/03/2024 1:30 PM EST Office Visit [facility] [place] [address] Leslye Mora MD Anxiety and depression (Primary Dx) 10/03/2024 Travel 09/28/2024 10:00 AM EST Office Visit [facility] [place] [address] Didi Mejia MD Anxiety and depression (Primary Dx) 09/28/2024 Telephone [facility] [place] [address] Cheyenne Frausto MD Chart Prep 09/28/2024 Travel 09/19/2024 Patient Outreach [facility] [place] [address] Cheyenne Frausto MD Pre-visit Planning (SDOH screening negative and tobacco screeningpositive) 08/08/2024 Telephone [facility] [place] [address] Cheyenne Frausto MD 07/27/2024 Orders Only [facility] [place] [address] ProviderTed MD from Last 3 Months Immunizations Name Administration [...] the past 12 months, has t he [employer], gas, oil or water company threatened to [...] series) 07/26/2023 06/28/2023 COVID-19 Vaccine (3 - season) 2024 12/11/2020, 11/21/2020 Diabetes: Hemoglobin A1C [...] track(06/28/20 6:05 PM EST) No Lara Morgan, Irina [...] EST Narrative 08/14/2024 7:31 AM EST ? [facility] ?[address] ?[place] [address] ? CT Scan Report ? Signed ? Patient: Cheynene Kinney ?MR#: [id number] ?? 0 ? : 1970 ?Acct:[id number] ? Age/Sex: 53 / F ?ADM Date: 08/11/24 ? Loc: HO.CT ? Attending Dr: Lori Guthrie PA-C ? Ordering Physician: Lori Guthrie PA-C ?? Date of Service: 08/11/24 ?? Procedure(s): CT lung screening ?? Accession Number(s): [id number] ? cc: Lori Guthrie PA-C; Cheyenne Frausto MD ? Report Number: ?? [id number]: Total DLP = ?? 56.00 mGy-cm ?? [...] ??Mauricio Garibay MD ??08/14/2024 07:28 AM EST ? Dictated By: ?Mauricio Garibay MD ? Signed By: ?<Electronically signed by Mauricio Garibay MD in OV> ?08/14/24 0728 ? DD/ 1012 ? TD/TT: 08/11/24 1103 ? Construction Electrician: ? Procedure Note Isaac, Zachery - 08/14/[address] [place] [address] [address] Scan Report Signed Patient: Cheyenne KinneyMR#: [id number] 0 : 1970Acct:[id number] Age/Sex: 53 / FADM Date: 08/11/24 Loc: HO.CT Attending Dr: Lori Guthrie PA-C Ordering Physician: Lori Guthrie PA-C Date of Service: 08/11/24 Procedure(s): CT lung screening Accession Number(s): [id number] cc: Lori Guthrie PA-C; Cheyenne Frausto MD Report Number: [id number]: Total DLP = 56.00 mGy-cm EXAMINATION: CT [...] 08/14/24 0728 DD/ 1012 TD/TT: 08/11/24 1103 Construction Electrician: [facility] External Provider IMG CT PROCEDURES Edited Result - Final * Syphilis Screen (07/17/2024 8:29 AM EST) Syphilis Screen Nonreactive Nonreactive [facility] Blood 07/17/2024 8:29 AM EST 07/17/2024 11:50 AM EST Cheyenne Wray MD LAB BLOOD ORDERAB LES Final Result [facility] [address] [place] [phone] * Vitamin D, 25-Hydroxy, Total, Immunoassay (07/17/2024 8:29 AM EST) Vitamin D 25-OH Total 35.2 >30 ng/mL [facility] Comment:Health Based Referen ce Values*< 20 ng/mL Hgdkrcrzk53-18 ng/mL Insufficient> 30 ng/mL Sufficient*Leroy MCCAULEY. N [...] MD LAB BLOOD ORDERAB LES Final Result [facility] [address] [place] [phone] * Vitamin B12 (Cobalamin) and Folate Panel, Serum (07/17/2024 8:29 AM EST) Vitamin B12 490 200 - 900 pg/mL [facility] Comment:NORMAL 200-900 PG/M L INDETERMINATE 160-199 PG/ML DEFICIENT < 160 PG/ML Folate 7.3 > or = 4.0 ng/mL [facility] Comment:Reference Values:> o r = 4.0 ng/mL< 4.0 ng/mL suggests folate deficiency Methotrexate, aminopterin and folinic acid(leucovorin) are chemotherapeutic agents whose molecularstructures are similar to folate; therefore, the Architectfolate assay cannot be used for patients using these drugs. Blood 07/17/2024 8:29 AM EST 07/17/2024 11:38 AM EST us Cheyenne Wray MD LAB BLOOD ORDERAB LES Final Result Performing Organization Address [facility] Phone Number [facility] [address] [place] [address] [phone] * TSH with Reflex to Free T4 (07/17/2024 8:29 AM EST) TSH reflex Free T4 1.87 0.32 - 4.0 uIU/mL [facility] Blood 07/17/2024 8:29 AM EST 07/17/2024 11:38 AM EST us Cheyenne Wray MD LAB BLOOD ORDERAB LES Final Result Performing Organization Address [facility] [address] [place] [address] [phone] * Albumin, Random Urine W/Creatinine (07/17/2024 8:29 AM EST) Creatinine, Urine 145.37 mg/dL [facility] Microalbumin Urine 19.0 mg/L [facility] Microalbum Creatinine Ratio Ur 13.0 <30 ug/mg cr [facility] Comment:Albumin/Creatinine R atio Reference Ranges: Normal: < 30 ug/mg creatinine Microalbuminuria: 30 - 300 ug/mg creatinineClinical Albuminuria: > 300 ug/mg creatinine Urine (Urine, Random) 07/17/2024 8:29 AM EST 07/17/2024 11:21 AM EST us Cheyenne Wray MD LAB URINE ORDERAB LES Final Result Performing Organization Address [facility] Number [facility] [address] [place] [address] [phone] * Hepatitis C Antibody with Reflex to HCV, RNA, Quantitative, Real-Time PCR (07/17/2024 8:29 AM EST) Pathologist [facility] Hepatitis C Antibody Nonreactive Nonreactive [facility] Comment:Antibodies to HCV no t detected; does not exclude early acuteHCV infection. Blood Venous blood specimen / Unknown 07/17/2024 8:29 AM EST 07/17/2024 11:38 AM EST Cheyenne Wray MD LAB BLOOD ORDERAB LES Final Result [facility] [address] [place] [phone] [phone] * Chlamydia/N. Gonorrhoeae RNA, TMA, Urogenitial (07/17/2024 8:29 AM EST) [facility] CT PCR NOT DETECTED Not Detect. [facility] Comment:A not detected test result does [...] psychologicalconsequences. NG PCR NOT DETECTED Not Detect. [facility] Comment:A not detected test result does [...] AM EST 07/17/2024 11:21 AM EST Narrative [facility] - 07/17/2024 1:34 PM EST Urine us Cheyenne Wray MD LAB MICROBIOLOGY - GENERAL ORDERABLES Final Result [facility] [address] [place] [address] [phone] * Hepatitis B surface antigen, EIA (07/17/2024 8:29 AM EST) Hepatitis B Surface Ag Negative Negative [facility] Blood Venous blood specimen / Unknown 07/17/2024 8:29 AM EST 07/17/2024 11:38 AM EST us Cheyenne Wray MD LAB BLOOD ORDERAB LES Final Result Performing Organization Address City/[facility]/ZIP Co de Phone Number [facility] [address] [place] [phone] * Hepatitis B Core Antibody, Total (07/17/2024 8:29 AM EST) Hepatitis B Core Antibody Nonreactive Nonreactive [facility] Blood Venous blood specimen / Unknown 07/17/2024 8:29 AM EST 07/17/2024 11:38 AM EST us Cheyenne Wray MD LAB BLOOD ORDERAB LES Final Result Performing Organization Address [facility] Co de Phone Number [facility] [address] [place] [phone] * HIV-1/2 Antigen and Antibodies, Fourth Generation, with Reflexes (07/17/2024 8:29 AM EST) HIV AB/AG Nonreactive Nonreactive [facility] Comment:HIV-1 p24 Ag and/or HIV-1/HIV-2 Ab not detected.A test result that is nonreactive does not exclude thepossibility of exposure to or infection with HIV-1 and/orHIV-2. Nonreactive results in this assay for individualswith prior exposure to HIV-1 and/or HIV-2 may be due toantigen and antibody levels that are below the limit ofdetection of this assay.The Droid system master HIV Ag/Ab Combo assay result andsupplemental assay results should be interpreted inconjunction with the patient's clinical presentation,history and other laboratory results. If the results areinconsistent with clinical evidence, additional testing issuggested to confirm the result. Blood Venous blood specimen / Unknown 07/17/2024 8:29 AM EST 07/17/2024 11:38 AM EST Cheyenne Wray MD LAB BLOOD ORDERAB LES Final Result Performing Organization Address [facility]/ZIP Co de Phone Number [facility] [address] [place] [address] [phone] * Hepatitis B Surface Antibody, Qualitative (07/17/2024 8:29 AM EST) [facility] ~Hepatitis B Surface Antibody NONREACTIVE Nonreactive [facility] Comment:Nonreactive: < 8.00 mIU/mL Blood Venous blood specimen / Unknown 07/17/2024 8:29 AM EST 07/17/2024 11:38 AM EST Cheyenne Wray MD LAB BLOOD ORDERAB LES Final Result Performing Organization Address [facility] Co de Phone Number [facility] [address] [place] [phone] * CBC (07/17/2024 8:29 AM EST) [facility] White Blood Count 7.2 4.8 - 10.8 X10*3/uL [facility] Red Blood Count 4.55 4.20 - 5.50 X10*6/uL [facility] Hemoglobin 14.0 12.0 - 16.0 g/dl [facility] Hematocrit 42.0 37.0 - 47.0 % [facility] Mean Corpuscular Volume 92.3 80.0 - 98.0 fL [facility] Mean Corpuscular Hemoglobin 30.8 27.0 - 33.0 pg [facility] Mean Corpuscular HGB Conc 33.3 31.0 - 35.0 g/dl [facility] Red Cell Distribution Width 13.2 11.0 - 16.0 % [facility] Platelet Count 205 160 - 400 X10*3/uL [facility] Mean Platelet Volume 11.1 9.4 - 12.3 fL [facility] NRBC Pct Auto 0.0 0.0 - 0.2 /100WBC [facility] NRBC Abs Auto 0.000 0.0 - 0.012 X10*3/uL [facility] Blood Venous blood specimen / Unknown 07/17/2024 8:29 AM EST 07/17/2024 11:39 AM EST us Cheyenne Wray MD LAB BLOOD ORDERAB LES Final Result [facility] [address] [place] [phone] * Hemoglobin A1c (07/17/2024 8:29 AM EST) Hemoglobin A1c 5.8 <6.0 % [facility] Comment:Hemoglobin A1C Refer ence Range Adults: 4.8 - 6.0 % Non diabetic: < 6.0 % Goal: < 7.0 %Additional Action Suggested: > 8.0 %Note: Hemoglobin A1c results are invalid for patients with abnormal amounts of HbF. Blood transfusions may impact the HbA1c concentration in the patient sample. Estimated Average Glucose 120 mg/dL [facility] Comment:eAG = Estimated ave rage glucose which is %A1C expressed asaverage glucose, using the formula of the W2S-TksaikcTyzuuej Glucose study (ADAG), Diabetes Care, Vol.31,#8,2007 Blood Venous blood specimen / Unknown 07/17/2024 8:29 AM EST 07/17/2024 11:39 AM EST Cheyenne Wray MD LAB BLOOD ORDERAB LES Final Result Performing Organization Address [facility] Co de Phone Number [facility] [address] [place] [address] [phone] * (ABNORMAL) Lipid Panel, Standard (07/17/2024 8:29 AM EST) Triglycerides 119 <150 mg/dL [facility] Comment:Desirable Triglyceri de: less than 150 mg/dLBorderline High Triglyceride 150-199 mg/dLHigh Triglyceride: 200-499 mg/dLVery High Triglyceride: greater than or equal to 5OO mg/dL Cholesterol 187 <200 mg/dL [facility] Comment:Desirable Cholestero l: less than 200 mg/dLBorderline High Cholesterol: 200-239 mg/dLHigh Cholesterol: greater than 239 mg/dL LDL Cholesterol Calculated 109(H) <100 mg/dL [facility] Comment:Desirable LDL: less than 100 mg/dLNear Optimal/Above Optimal LDL: 110- 129 mg/dLBorderline High LDL: 130-159 mg/dLHigh LDL: 160-189 mg/dLVery High LDL: greater than or equal to 190 mg/dL HDL Cholesterol 55 >40 mg/dL [facility] Comment:Desirable HDL: great er than 40 mg/dL Note: This HDL assay may give artificially low results in patients with liver disease. Blood Venous blood specimen / Unknown 07/17/2024 8:29 AM EST 07/17/2024 11:38 AM EST us Cheyenne Wray MD LAB BLOOD ORDERAB LES Final Result Performing Organization Address [facility]/ZIP Co de Phone Number [facility] [address] [place] [address] [phone] * (ABNORMAL) Comprehensive Metabolic Panel (07/17/2024 8:29 AM EST) Sodium 142 135 - 145 mmol/L [facility] Potassium 4.0 3.3 - 5.1 mmol/L [facility] Chloride 110(H) 96 - 108 mmol/L [facility] Carbon Dioxide 28 22 - 29 mmol/L [facility] Anion Gap 8(L) 12 - 20 [facility] Urea Nitrogen (BUN) 18(H) 9 - 16 mg/dL [facility] Creatinine, Serum 0.64 0.5 - 1.4 mg/dL [facility] Estimated Glomerular Filt Rate >60 [facility] Comment:Chronic Kidney Disea se: Estimated GFR < 60 mL/min/1.63g5Uugckw Kidney Disease: Estimated GFR < 15 mL/min/1.73m2 Glucose 109 60 - 115 mg/dL [facility] Calcium 8.7 8.4 - 10.2 mg/dL [facility] Bilirubin, Total 0.7 0.0 - 1.0 mg/dL [facility] Aspartate Amino Transferase 19 5 - 31 U/L [facility] Alanine Aminotransferase 22 0 - 31 U/L [facility] Total Protein 6.6 6.5 - 8.0 g/dL [facility] Albumin Level 3.9 3.5 - 5.0 g/dL [facility] Alkaline Phosphatase 97 39 - 117 U/L [facility] Blood Venous blood specimen / Unknown 07/17/2024 8:29 AM EST 07/17/2024 11:38 AM EST us Cheyenne Wray MD LAB BLOOD ORDERAB LES Final Result [facility] [address] [place] [phone] * Hm Colonoscopy (03/08/2024 12:22 PM EDT) us Historical Provider HEALTH MAINTENANCE Final Result * BI Mammogram Screening Tomosynthesis Bilateral (12/15/2023) Anatomical Region Laterality Modality Breast Bilateral Mammography Cheyenne Wray MD IMG BI PROCEDURES Final Result * Pap Smear (10/01/2022) Pap smear perform Historical Provider HEALTH MAINTENANCE Final Result from Last 3 Months or Most Recently Relevant to Health Maintenance Insurance [facility] C3 HS PARTIAL Care Teams Vacuum Closing Machine Operator Relationship Specialty Start Date End Date Cheyenne Frausto MD [address] [place] [phone] PCP - General Internal Medicine 03/30/23
--- OUTSIDE RECORDS SUMMARY | 2024-10-12 09:53 | XMS_ITS | Encounter Summary ---
Author Organization [employer] Address [address] [place] [address] Care Team Providers Care Football Pad Repairer Name Role Phone Cheyenne Frausto MD Primary Care Pro vider Reason for Visit * Reason Onset Date Comments Chart Prep 09/28/2024 Encounter Details Date Type Department Care Team ([facility] st Contact Info) Description 09/28/2024 Telephone [facility] [address] [place], [place] [phone] Cheyenne Frausto MD [address] [place] [address] Chart Prep Social History Tobacco Use Types [...] documented as of this encounter Care Teams Football Pad Repairer Relationship Specialty Start Date End Date Cheyenne Frausto MD [address] [place] [phone] PCP - General Internal Medicine 03/30/23 documented as of this encounter
--- OUTSIDE RECORDS SUMMARY | 2024-10-12 09:53 | XMS_ITS | Encounter Summary ---
Author Organization [employer] Address [address] [place] [address] Care Team Providers Care Carpet Installer Name Role Phone Cheyenne Frausto MD Primary Care Pro vider Reason for Visit * Reason Comments Pre-visit Planning SDOH screening negat elisa and tobacco screeningpositive Encounter Details Date Type Department Care Team ([facility] st Contact Info) Description 09/19/2024 Patient Outreach [facility] [address] [place], [place] [phone] Cheyenne Frausto MD [address] [place] [address] Pre-visit Planning (SDOH screening negative and tobacco [...] the past 12 months, has t he [employer], gas, oil or water [employer] threatened to shut off services in your [...] documented as of this encounter Care Teams Carpet Installer Relationship Specialty Start Date End Date Cheyenne Frausto MD [address] [place] [phone] PCP - General Internal Medicine 03/30/23 documented as of this encounter
--- OUTSIDE RECORDS SUMMARY | 2024-10-12 09:53 | XMS_ITS | Encounter Summary ---
Author Organization [employer] Address [address] [place] [address] 7 [place] [address] Care Team Providers Care Cloth Measurer Machine Name Role Phone Cheyenne Frausto MD Primary Care Pro vider Reason for Referral * Consultation (Routine) - Closed Specialty Diagnoses / Procedures Referred By Conthilary t Referred To Contact Otolaryngology Diagnoses Ear itching Cheyenne Donis MD [address] [place] [phone] Phone: tel: fax: [facility] [address] Phone: tel: fax: Referral ID Status Reason Start Date Expiration Date V isits Requested Visits Authorized [id number] Closed Specialty Services Required 10/06/2024 10/06/2025 6 6 Encounter Details Date Type Department Care Team (Late st Contact Info) Description 10/03/2024 2:45 PM EST Office Visit [facility] [address] [place] [address] [phone] Cheyenne Donis MD [address] [place] [address] [phone] UTI symptoms (Primary Dx); Ear itching; Onychomycosis; [...] is your housing situation today? 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
--- OUTSIDE RECORDS SUMMARY | 2024-10-12 09:53 | XMS_ITS | Encounter Summary ---
Author Organization [employer] Address [address] [facility] 7t [place] [address] Care Team Providers Care Drying Frame Operator Name Role Phone Cheyenne Frausto MD [...] documented as of this encounter Care Teams Drying Frame Operator Relationship Specialty Start Date End Date Cheyenne Frausto MD [address] [place] [phone] PCP - General Internal Medicine 03/30/23 documented as of this encounter
--- OUTSIDE RECORDS SUMMARY | 2024-10-12 09:53 | XMS_ITS | Encounter Summary ---
Author Organization [facility] Address [facility] [place] [address] Care Team Providers Care Blankbook Forwarder Name Role Phone Patsy Waters MD Primary Care Provider Unavail able Encounter Details Date Type Department Care Team Description 05/06/2018 Release of Information Medical Records [address] [place] [phone] Abstract, Provider Social History Tobacco Use Types [...] on filedocumented in this encounter Care Teams Blankbook Forwarder Relationship Specialty Start Date End Date Patsy Waters MD PCP - General Internal Medicine 02/28/18 documented as of this encounter
[2024-10-12 12:04] LABS: Appearance Urine Clear; Color Urine Yellow; Glucose Urine UA Negative (Negative); Leukocyte Esterase Urine Negative (Negative); Nitrite Urine Negative (Negative); Specific Gravity - Urine 1.015 (1.005-1.025); Urine Blood Negative (Negative); Urine Ketones Negative (Negative); Urine Protein Negative (Neg-Trace)
== END 2024-10-12 08:59 | disposition home or self-care (01) ==
LOC: HO.HHCL 08:58
PROVIDERS: Visit Provider Internal Medicine
DX: R39.9 Unspecified symptoms and signs involving the genitourinary system (principal)
CPT/HCPCS: 81003; 87086

== ENCOUNTER → 2024-12-29 09:33 | Outpatient (REF) | payer MEDICAID, SELFPAY ==
--- NOTE | 2024-12-29 09:36 | CA_ITS ---
Acquisition Time: 2024-12-29 10:05:00 Total Exercise Time: 00:02:00 Test Indications: CP,Dyspnea Medications: AMLODIPINE ATORVASTATIN Protocol: LEXISCAN Max HR: 104 BPM 63% of Pred: 164 BPM Max BP: 122/78 mmHG Max Work Load: 1.6 METS Pharmacological stress test with Lexiscan while pt walks on treadmill at 1.5mph, with reports of palpitations and SOB, no chest pain, without any arrythmias, with normotensive response to injection. Nondiagnostic EKG for ischemia. In recovery, pt feeling back to baseline. Nuclear iages pending. Test reviewed with Dr. Garcia. Referred By: Fermin Hernadez Electronically Signed By: Fermin Hernadez
--- OUTSIDE RECORDS SUMMARY | 2024-12-29 09:47 | XMS_ITS | Encounter Summary ---
Author Organization [email or web address] Address [address] [facility] 7t [place] [address] Care Team Providers Care Slackman Name Role Phone Cheyenne Frausto MD Primary Care Pro vider Reason for Visit * Reason Comments Med Refill Encounter Details Date Type Department Care Team ([facility] st Contact Info) Description 04/10/2024 Refill [facility] [address] [place] [address] [phone] Name, MD Jamshid [address] [place] [address] Social History Tobacco Use Types Packs/Day Years Used Date Smoking Tobacco: Every Day Cigarettes 0.5 44.4 Started: 1980 Passive Smoke Exposure: Current Comments:Started [...] documented as of this encounter Care Teams Slackman Relationship Specialty Start Date End Date Cheyenne Frausto MD [address] [place] [phone] PCP - General Internal Medicine 03/30/23 documented as of this encounter
== END ==
LOC: HO.CARD 09:33
DX: R06.02 Shortness of breath (principal)
CPT/HCPCS: 93017; J0280; J2785

== ENCOUNTER → 2024-12-29 09:36 | Outpatient (BNV) | payer MEDICAID, SELFPAY | DX: R06.02 Shortness of breath (principal) | CPT/HCPCS: 78452; 93016; 93018 ==

== ENCOUNTER 2025-06-20 08:34 | Outpatient (REF) | payer MEDICAID, SELFPAY ==
--- OUTSIDE RECORDS SUMMARY | 2025-06-20 08:55 | XMS_ITS | Clinical Summary ---
Author Organization [employer] Address [address] [place] [address] 7t [place] [address] Care Team Providers Care Baked Goods Stock Clerk Name Role Phone Cheyenne Frausto MD [...] each day (Allergies). 90 tablet 4 Active ciclopirox (Penlac) 8 % solutionIndicati ons:Onychomycosi s Apply topically at bedtime. 6 mL 1 5 Active amLODIPine (Norvasc) 5 MG tabletIndication s:Primary hypertension TAKE 1 TABLET BY MOUTH EVERY DAY 90 tablet 5 Active atorvastatin (Lipitor) 10 MG tablet Take 1 tablet (10 mg) by mouth in the morning. 90 tablet 5 Active Active Problems Problem Noted Date [...] Encounters Date Type Department Care Team Description 04/17/2025 Refill [facility] [address] [place] [address] Cheyenne Frausto MD Primary hypertension 04/17/2025 Telephone [facility] [address] [place] [address] Cheyenne Frausto MD Nurse Triage from Last 3 Months Immunizations Immunization Administration Dates Next Due Hep B, adult [...] Date Smoking Tobacco: Every Day Cigarettes 0.5 44.9 Started: 1980 Passive Smoke Exposure: Current Tobacco [...] 53 10/03/2024 2:56 PM EST Temperature 35.8 C (96.5 F) 10/03/2024 2:56 PM EST Respiratory Rate 18 10/03/2024 2:56 PM EST [...] 1968 FIT 1968 FOBT 1968 Sigmoidoscopy 1968 Disability Screening 1968 Zoster Vaccines (2 of 2) 06/07/2020 04/12/2020 Hepatitis B Vaccines (2 of 3 - 19+ 3-dose series) 07/26/2023 06/28/2023 COVID-19 Vaccine (3 - season) 2025 12/11/2020, 11/21/2020 Influenza Vaccine (#1) 2025 , 04/28/2023, 04/12/2020, Additional history exists Diabetes: Hemoglobin A1C 07/17/2025 024, 01/25/2024, 04/30/2023, Additional history exists Lung Cancer Screening 08/11/2025 08/11/2024 SDOH Screening 09/19/2025 09/19/2024 Cervical Cancer Screening 10/01/2025 HPV/Cotest 10/01/2025 Pap Smear 10/01/2025 10/01/2022 Alcohol/Substance Use Screening 10/03/2025 10/03/2024 Depression Screening 10/03/2025 10/03/2024, 10/03/19 Tobacco Screening 10/03/2025 10/03/2024 Mammogram 12/20/2026 12/20/2024, 12/07, 12/15/2023 Colonoscopy 03/08/2027 03/08/2024 Colorectal Cancer Screening 03/08/2027 Lipid Panel 07/17/2029 07/17/2024, 01/07, 04/30/2023, Additional history exists DTaP/Tdap/Td Vaccines (2 - Td or Tdap) 12/19/2031 12/18/2021, 06/13/2008 RSV Patients and Patients Aged 60 years or older (1 - 1-dose 75+ series) 2043 Pneumococcal Vaccine: 50+ Years Completed 05/28/2023 HIV Screening Completed 07/17/2024, 04/10, 05/27/2022 Hepatitis [...] age to complete this topic Meningococcal B Vaccine Aged Out No l onger eligible based on patient's age to complete [...] SCREENING Routine 08/11/2024 1 0:12 AM EST HEPATITIS C AB W/REFL TO HCV RNA, [...] AM EST Narrative 08/14/2024 7:31 AM EST [address] [address] [address] Scan Report Signed Patient: Cheyenne Kinney MR#: [id number] 0 : 1970 Acct:[id number] Age/Sex: 53 / F ADM Date: 08/11/24 Loc: HO.CT Attending Dr: Lori Guthrie PA-C Ordering Physician: Lori Guthrie PA-C Date of Service: 08/11/24 Procedure(s): CT lung screening Accession Number(s): [id number] cc: Lori Guthrie PA-C; Cheyenne Frausto MD Report Number: [id number]: Total DLP = 56.00 mGy-cm EXAMINATION: CT [...] 08/14/24 0728 DD/ 1012 TD/TT: 08/11/24 1103 Superintendent Building: Procedure Note Donotsusaninterpreter, Image - 08/14/[address] [address] [address] Scan Report Signed Patient: Asuncion Kinney#: [id number] 0 : 1970Acct:[id number] Age/Sex: 53 / FADM Date: 08/11/24 Loc: HO.CT Attending Dr: Lori Guthrie PA-C Ordering Physician: Lori Guthrie PA-C Date of Service: 08/11/24 Procedure(s): CT lung screening Accession Number(s): [id number] cc: Lori Guthrie PA-C; Cheyenne Frausto MD Report Number: [id number]: Total DLP = 56.00 mGy-cm EXAMINATION: CT [...] 08/14/24 0728 DD/ 1012 TD/TT: 08/11/24 1103 Superintendent Building: [facility] External Provider IMG CT PROCEDURES Edited Result - Final * Hepatitis C Antibody with Reflex to HCV, RNA, Quantitative, Real-Time PCR (07/17/2024 8:29 AM EST) Hepatitis C Antibody Nonreactive Nonreactive [facility] Comment:Antibodies to HCV no t detected; does not exclude early acuteHCV infection. Blood Venous blood specimen / Unknown 07/17/2024 8:29 AM EST 07/17/2024 11:38 AM EST Cheyenne Wray MD LAB BLOOD ORDERAB LES Final Result [facility] [address] [place] [phone] * HIV-1/2 Antigen and Antibodies, Fourth Generation, with Reflexes (07/17/2024 8:29 AM EST) HIV AB/AG Nonreactive Nonreactive [facility] Comment:HIV-1 p24 Ag and/or HIV-1/HIV-2 Ab not detected.A test result that is nonreactive does not exclude thepossibility of exposure to or infection with HIV-1 and/orHIV-2. Nonreactive results in this assay for individualswith prior exposure to HIV-1 and/or HIV-2 may be due toantigen and antibody levels that are below the limit ofdetection of this assay.The mobile mum HIV Ag/Ab Combo assay result andsupplemental assay results should be interpreted inconjunction with the patient's clinical presentation,history and other laboratory results. If the results areinconsistent with clinical evidence, additional testing issuggested to confirm the result. Blood Venous blood specimen / Unknown 07/17/2024 8:29 AM EST 07/17/2024 11:38 AM EST us Cheyenne Wray MD LAB BLOOD ORDERAB LES Final Result Performing Organization Address [facility]/ZIP Co de Phone Number [facility] [address] [place] [phone] * Hemoglobin A1c (07/17/2024 8:29 AM EST) Hemoglobin A1c 5.8 <6.0 % [facility] Comment:Hemoglobin A1C Refer ence Range Adults: 4.8 - 6.0 % Non diabetic: < 6.0 % Goal: < 7.0 %Additional Action Suggested: > 8.0 %Note: Hemoglobin A1c results are invalid for patients with abnormal amounts of HbF. Blood transfusions may impact the HbA1c concentration in the patient sample. Estimated Average Glucose 120 mg/dL [facility] Comment:eAG = Estimated ave rage glucose which is %A1C expressed asaverage glucose, using the formula of the C2B-XqvtsktCflvobt Glucose study (ADAG), Diabetes Care, Vol.31,#8,Mar. 2007 Blood Venous blood specimen / Unknown 07/17/2024 8:29 AM EST 07/17/2024 11:39 AM EST us Cheyenne Wray MD LAB BLOOD ORDERAB LES Final Result Performing Organization Address City/[facility]/ZIP Co de Phone Number [facility] [address] [place] [phone] * (ABNORMAL) Lipid Panel, Standard (07/17/2024 8:29 AM EST) Triglycerides 119 <150 mg/dL [facility] Comment:Desirable Triglyceri de: less than 150 mg/dLBorderline High Triglyceride 150-199 mg/dLHigh Triglyceride: 200-499 mg/dLVery High Triglyceride: greater than or equal to 5OO mg/dL Cholesterol 187 <200 mg/dL [facility] Comment:Desirable Cholestero l: less than 200 mg/dLBorderline High Cholesterol: 200-239 mg/dLHigh Cholesterol: greater than 239 mg/dL LDL Cholesterol Calculated 109(H) <100 mg/dL [facility] Comment:Desirable LDL: less than 100 mg/dLNear Optimal/Above Optimal LDL: 110- 129 mg/dLBorderline High LDL: 130-159 mg/dLHigh LDL: 160-189 mg/dLVery High LDL: greater than or equal to 190 mg/dL HDL Cholesterol 55 >40 mg/dL [facility] Comment:Desirable HDL: great er than 40 mg/dL Note: This HDL assay may give artificially low results in patients with liver disease. Blood Venous blood specimen / Unknown 07/17/2024 8:29 AM EST 07/17/2024 11:38 AM EST Cheyenne Wray MD LAB BLOOD ORDERAB LES Final Result [facility] [address] [place] [phone] * Colonoscopy (03/08/2024 12:22 PM EDT) Historical Provider HEALTH MAINTENANCE Final Result * BI Mammogram Screening Tomosynthesis Bilateral (12/15/2023) Anatomical Region Laterality Modality Breast Bilateral Mammography Cheyenne Wray MD IMG BI PROCEDURES Final Result * Pap Smear (10/01/2022) Pap smear perform Historical Provider HEALTH MAINTENANCE Final Result from Last 3 Months or Most Recently Relevant to Health Maintenance [place] [address] [place] [address] C3 [employer] Care Teams Baked Goods Stock Clerk Relationship Specialty Start Date End Date Cheyenne Frausto MD [address] [place] [phone] PCP - General Internal Medicine 03/30/23
--- OUTSIDE RECORDS SUMMARY | 2025-06-20 08:55 | XMS_ITS | Clinical Summary ---
Author Organization [facility] [address] [place] [address] [place] [address] Phone Care Team Providers Care Test Borer Name Role Phone Patsy Waters MD Primary Care Provider [phone] Surgical History Surgery Date Site/Laterality Comments OTHER [...] = 0.6 oz pur e alcohol) Comments No Sex and Gender Information Value Date Recorded Sex Assigned at Not on file Legal Sex Female 1:51 AM EST Gender Identity Not on file Sexual Orientation Not on file Obstetrics History Para Term AB IAB SAB Ectopic Multiple Livin g Live Births 3 3 3 3 Date Outcome GA Total Labor Labor/2nd/3rd Weight Sex Type Anes PTL Emmie A1 A5 Name Clin Term Term Term Plan of Treatment Health Maintenance Due Date Last Done Comments Colorectal Cancer Screening: Colonoscopy 1968 Hepatitis A Vaccines (1 of 2 - Risk 2-dose series) 1987 Cervical Cancer Screening: Pap Smear 1989 Zoster Vaccines (2 of 2) 06/07/2020 04/12/2020 Social Influencers of Health Screening 07/12/2022 Hypertension/CHF/CAD Annual BMP Blood Test 07/21/2022 Hepatitis B Vaccines (2 of 3 - 19+ 3-dose series) 07/26/2023 06/28/2023 Depression Screening 08/09/2024 COVID-19 Vaccine (3 - 2024- season) 2025 12/11/2020, 11/21/2020 Influenza Vaccine (#1) 2025 , 04/28/2023, 04/12/2020, Additional history exists Lung Cancer Screening (Low Dose CT) 08/11/2025 08/11/2024 Breast Cancer Screening 12/20/2026 12/21/19, 12/15/2023, 12/15/2023, Additional history exists Cholesterol Screening (Lipid Panel) 07/17/2029 07/17/2024 DTaP,Tdap,and Td Vaccines (3 - Td or Tdap) 12/19/2031 12/18/2021, 06/13/2008 RSV Immunization Adult Patients (1 - 1-dose 75+ series) 2043 Pneumococcal Vaccine: 50+ Years Completed 05/28/2023 HIV Screening Completed 07/17/2024 Hepatitis C Screening Completed 07/17/2024 HIB Vaccines Aged Out No longer eligi [...] Procedure Name Priority Date/Time Associated Diagnosis Comments MG MAMMO DIGITAL SCREENING W SHANE BILAT Routine 12/20/2024 1:37 PM EDT Encounter for screening mammogram for breast cancer from Last 3 Months or Most Recently Relevant to Health Maintenance Results * MG Mammo Digital Screening w Shane bilat (12/20/2024 1:37 PM EDT) Anatomical Region Laterality Modality Breast Bilateral Mammography 12/21/2024 8:52 AM EDT Impressions 12/21/2024 8:56 AM EDT BILATERAL BREASTS: Negative, no evidence of malignancy. Normal interval follow- up is recommended in 12 months. BREAST DENSITY: B - There are scattered areas of fibroglandular density. BI-RADS CATEGORY: 1 - NEGATIVE RECOMMENDATION: Screening bilateral mammogram is recommended in 1 year. Mammo Location: [facility], [address] [place] [phone], . -------- FINAL REPORT -------- Dictated By: Pauline Weeks Dictated Date: 12/21/2024 08:52 ET Assigned Physician: Pauline Weeks Reviewed and Electronically Signed By: Pauline Weeks Signed Date: 12/21/2024 08:56 ET Workstation ID: [id number] Transcribed By: Self Edit Transcribed Date: 12/21/2024 08:52 ET Narrative 12/21/2024 8:56 AM EDT STUDY: Bilateral screening mammography with tomosynthesis and CAD TECHNIQUE: Bilateral full-field digital screening mammography is obtained and read in conjunction with computer-aided detection. Tomosynthesis as well as 2-D C view imaging were obtained. COMPARISON: Comparison made to multiple prior, most recent December 15, 2023, and most remote October 16, 2019. BILATERAL BREASTS: No significant masses, suspicious calcifications or other abnormalities are seen in either breast. Procedure Note Pauline Weeks MD - 12/21/2024 STUDY: Bilateral screening mammography with tomosynthesis and CAD TECHNIQUE: Bilateral full-field digital screening mammography is obtainedand read in conjunction with computer-aided detection. Tomosynthesis aswell as 2-D C view imaging were obtained. COMPARISON: Comparison made to multiple prior, most recent December 15, 2023,and most remote October 16, 2019. BILATERAL BREASTS: No significant masses, suspicious calcifications orother abnormalities are seen in either breast. IMPRESSION: BILATERAL BREASTS: Negative, no evidence of malignancy. Normal intervalfollow-up is recommended in 12 months. BREAST DENSITY: B - There are scattered areas of fibroglandular density. BI-RADS CATEGORY: 1 - NEGATIVE RECOMMENDATION: Screening bilateral mammogram is recommended in 1 year. Mammo Location: [facility], [address] [place] [address], [phone], . -------- FINAL REPORT -------- Dictated By: Pauline Weeks Dictated Date: 12/21/2024 08:52 ET Assigned Physician: Pauline Weeks Reviewed and Electronically Signed By: Pauline Weeks Signed Date: 12/21/2024 08:56 ET Workstation ID: [id number] Transcribed By: Self Edit Transcribed Date: 12/21/2024 08:52 ET Cheyenne Wray MD IMG BI PROCEDURES Final Result from Last 3 Months or Most Recently Relevant to Health Maintenance Insurance MEDICAID - [place] Care Teams Test Borer Relationship Specialty Start Date End Date Patsy Waters MD [address] [place] [phone] PCP - General Internal Medicine 02/28/18
--- OUTSIDE RECORDS SUMMARY | 2025-06-20 08:55 | XMS_ITS | Clinical Summary ---
Author Organization [facility] Address [address] [place] [address] Care Team Providers Care Manager Account Management Name Role Phone Hansa Sotomayor PA-C Primary Care Provider [phone] Source Comments PLEASE NOTE, if this patient [...] Fibromyalgia 04/16/2016 Tobacco abuse disorder 04/16/2016 Immunizations Immunization Administration Dates Next Due Flu, Preservative Free [...] Industry Job Start Date Job End Date [employer] Not on file Not on file Not on file Last Filed Vital Signs Vital Sign Reading Time Taken Comments Blood Pressure 147/76 11/25/2016 11:47 AM EDT Pulse 66 11/25/2016 11:47 AM EDT Temperature 37.2 C (98.9 F) 11/25/2016 11:47 AM EDT Respiratory Rate 16 11/25/2016 11:47 AM EDT Oxygen Saturation - - Inhaled Oxygen Concentration - - Weight 82.1 kg (181 lb) 04/16/2016 3:20 PM EDT Height 162.6 cm (5' 4 ) 04/16/2016 3:20 PM EDT Body Mass Index 31.07 04/16/2016 3:20 PM EDT Plan of Treatment Not on file Insurance [place] MEDICAID Care Teams Manager Account Management Relationship Specialty Start Date End Date Hansa Sotomayor PA-C [address] [place] [address] PCP - General 10/04/18
--- OUTSIDE RECORDS SUMMARY | 2025-06-20 08:55 | XMS_ITS | Encounter Summary ---
Author Organization [employer] Address [address] [place] [address] [place] [address] Care Team Providers Care Substitute Crossing Guard Name Role Phone Cheyenne Frausto MD Primary Care Pro vider Reason for Visit * Reason Onset Date Comments Reschedule 11/03/2023 Encounter Details Date Type Department Care Team ([facility] st Contact Info) Description 11/03/2023 Telephone [facility] [address] [place], [place] [phone] Cheyenne Frausto MD [address] [place] [address] Reschedule Social History Tobacco Use Types Packs/Day Years Used Date Smoking Tobacco: Every Day Cigarettes 0.5 44.9 Started: 1980 Passive Smoke Exposure: Current Comments:Started [...] documented as of this encounter Care Teams Substitute Crossing Guard Relationship Specialty Start Date End Date Cheyenne Frausto MD [address] [place] [phone] PCP - General Internal Medicine 03/30/23 documented as of this encounter
--- OUTSIDE RECORDS SUMMARY | 2025-06-20 08:55 | XMS_ITS | Encounter Summary ---
Author Organization [employer] Address [address] [facility] 7t [place] [address] Care Team Providers Care Transfer Agent Name Role Phone Cheyenne Frausto MD Primary Care Pro vider Reason for Visit * Reason Comments Med Refill Encounter Details Date Type Department Care Team ([facility] st Contact Info) Description 04/10/2024 Refill [facility] [address] [place] [address] [phone] Name, MD Jamshid [address] [place] [address] Social History Tobacco Use Types Packs/Day Years [...] documented as of this encounter Care Teams Transfer Agent Relationship Specialty Start Date End Date Cheyenne Frausto MD [address] [place] [phone] PCP - General Internal Medicine 03/30/23 documented as of this encounter
--- OUTSIDE RECORDS SUMMARY | 2025-06-20 08:55 | XMS_ITS | Encounter Summary ---
Author Organization [employer] Address [address] [facility] 7t [place] [address] Care Team Providers Care Plier Worker Name Role Phone Cheyenne Frausto MD Primary Care Pro vider Encounter Details Date Type Department Care Team (Late st Contact Info) Description 07/27/2024 Orders Only [facility] [address] [place] [address] Provider, MD Ted Social History Tobacco Use [...] Procedure Name Priority Date/Time Associated Diagnosis Comments CULTURE, URINE, ROUTINE Routine 10/12/2024 9:00 AM EST LDCT LUNG SCREENING Routine 08/11/2024 1 0:12 AM EST HM COLONOSCOPY Routine 03/08/2024 12:22 PM EDT documented in this encounter Results * Culture, Urine, Routine (10/12/2024 9:00 AM EST) Urine Urine specimen obtained by clean catch procedure / Unknown 10/12/2024 9:00 AM EST 10/12/2024 11:48 AM EST Comment:UACC Narrative [facility] - 10/13/2024 11:39 AM EST Urine Culture Report Result Urine Culture 10,000 to 50,000 cfu/ml Urine Culture Mixed bacterial una characteristic of Urine Culture urogenital contamination. Specimen Source: Urine clean catch us Cheyenne Goldman MD LAB MICROBIOLOGY - NERAL ORDERABLES Final Result [facility] [address] [place] [phone] * CT Lung Screening Low dose (08/11/2024 10:12 AM EST) Anatomical Region Laterality Modality Lung Computed Tomogra phy 08/11/2024 10:1 2 AM EST Narrative 08/14/2024 7:31 AM EST [address] [address] [address] Scan Report Signed Patient: Cheyenne Kinney MR#: [id number] 0 : 1970 Acct:[id number] Age/Sex: 53 / F ADM Date: 08/11/24 Loc: HO.CT Attending Dr: Lori Guthrie PA-C Ordering Physician: Lori Guthrie PA-C Date of Service: 08/11/24 Procedure(s): CT lung screening Accession Number(s): [id number] cc: Lori Guthrie PA-C; Cheyenne Frausto MD Report Number: [id number]: Total DLP = 56.00 mGy-cm EXAMINATION: CT [...] 08/14/24 0728 DD/ 1012 TD/TT: 08/11/24 1103 City Assessor: Procedure Note Donotuseinterpreter, Image - 08/14/[address] [address] [address] Scan Report Signed Patient: Asuncion Kinney#: [id number] 0 : 1970Acct:[id number] Age/Sex: 53 / FADM Date: 08/11/24 Loc: HO.CT Attending Dr: Lori Guthrie PA-C Ordering Physician: Lori Guthrie PA-C Date of Service: 08/11/24 Procedure(s): CT lung screening Accession Number(s): [id number] cc: Lori Guthrie PA-C; Cheyenne Frausto MD Report Number: [id number]: Total DLP = 56.00 mGy-cm EXAMINATION: CT [...] 08/14/24 0728 DD/ 1012 TD/TT: 08/11/24 1103 City Assessor: [facility] External Provider IMG CT PROCEDURES Edited Result - Final * Hm Colonoscopy (03/08/2024 12:22 PM EDT) Historical Provider HEALTH MAINTENANCE Final Result documented in this encounter Visit Diagnoses Not on filedocumented in this encounter Additional Health Concerns Assessment Noted Time PHQ-9 Depression Total Score: 1 05/28/20 9:15 AM EDT documented as of this encounter Care Teams Plier Worker Relationship Specialty Start Date End Date Cheyenne Frausto MD [address] [place] [phone] PCP - General Internal Medicine 03/30/23 documented as of this encounter
--- OUTSIDE RECORDS SUMMARY | 2025-06-20 08:55 | XMS_ITS | Encounter Summary ---
Author Organization [employer] Address [address] [place] [address] 7 [place] [address] Care Team Providers Care Ice Cream Truck Driver Name Role Phone Cheyenne Frausto MD Primary Care Pro vider Reason for Visit * Reason Comments Med Refill Encounter Details Date Type Department Care Team ([facility] st Contact Info) Description 01/19/2024 Refill [facility] [address] [place], [place] [phone] Karthikeyan Walker MD [address] [place] [phone] Primary hypertension Social History Tobacco Use Types [...] documented as of this encounter Care Teams Ice Cream Truck Driver Relationship Specialty Start Date End Date Cheyenne Frausto MD [address] [place] [phone] PCP - General Internal Medicine 03/30/23 documented as of this encounter
[2025-06-20 10:02] LABS: Anion Gap 11 (12-20); Blood Urea Nitrogen 15 mg/dL (9-16); Calcium 9.2 mg/dL (8.4-10.2); Carbon Dioxide 24 mmol/L (22-29); Chloride 113 mmol/L (96-108); Estimated Glomerular Filt Rate > 60; Potassium 4.1 mmol/L (3.3-5.1); Sodium 144 mmol/L (135-145)
== END 2025-06-20 08:35 | disposition home or self-care (01) ==
LOC: HO.LAB 08:34
PROVIDERS: PCP Internal Medicine
DX: R06.02 Shortness of breath (principal)
CPT/HCPCS: 36415; 80048